=== PATIENT | female | born 1955 | race Hispanic/Latino ===

== ENCOUNTER 2021-05-24 09:35 | Emergency (ER) | payer SELFPAY ==
--- NOTE | 2021-05-24 09:47 | EDPHYS ---
Physician Documentation [facility] Name: Reno Vee Age: 65 yrs Sex: Female : 1955 Arrival Date: 05/24/2021 Time: 09:36 Bed 20 Private MD: ED Physician Christ Esquivel HPI: 05/24 09:45 This 65 yrs old Female presents to ER via Unassigned with complaints of kb Allergic Reaction, Rash. 09:45 The patient presents with itching, localized swelling, rash. Onset: The kb symptoms/episode began/occurred 3 day(s) ago. Associated signs and symptoms: Pertinent positives: rash, swelling, Pertinent negatives: shortness of breath. Possible causes: poison amy, poison oak. At home the patient or guardian has treated the symptoms with Benadryl. Severity of symptoms: At their worst the symptoms were moderate in the emergency department the symptoms are unchanged. The patient has experienced similar episodes in the past, a few times. The patient has not recently seen a physician. Pt got into poison amy or poison oak when working outside. Developed rash and swelling to face that is radiating to neck now. REports itching to bilateral upper extremities. Historical: - Allergies: 09:46 No Known Allergies; iw - Home Meds: 09:46 carvedilol oral [Active]; Metformin Oral [Active]; Glipizide Oral [Active]; Lisinopril iw Oral [Active]; amlodipine oral [Active]; - PMHx: 09:46 Hypertensive disorder; Diabetes mellitus; iw - PSHx: 09:46 None; iw - Immunization history:: Client reports receiving the 2nd dose of the Covid vaccine. - Social history:: Smoking status: Patient denies any tobacco usage or history of. ROS: 09:43 Constitutional: Negative for fever, chills, and weight loss. kb 09:43 Skin: Positive for rash, swelling, of the face and neck. 09:43 All other systems are negative. Exam: 09:43 Constitutional: This is a well developed, well nourished patient who is awake, alert, kb and in no acute distress. Head/Face: Normocephalic, atraumatic. ENT: Moist Mucous membranes Respiratory: Respirations even and unlabored. No increased work of breathing, no retractions or nasal flaring. MS/ Extremity: Pulses equal, no cyanosis. Neurovascular intact. Full, normal range of motion. Neuro: Awake and alert, GCS 15, oriented to person, place, time, and situation. Moves all extremities. Normal gait. Psych: Awake, alert, with orientation to person, place and time. Behavior, mood, and affect are within normal limits. 09:43 Skin: Appearance: normal except for affected area, swelling, noted on the face, that are mild, that are moderate, rash a mild rash is noted. Vital Signs: 09:47 BP 180 / 85; Pulse 75; Resp 18 S; Temp 98.0; Pulse Ox 98% on R/A; Weight 68.04 kg; iw MDM: 09:37 Patient medically screened. kb 09:42 Data reviewed: vital signs, nurses notes. Data interpreted: Pulse oximetry: on room air kb is 100 %. Interpretation: normal. Counseling: I had a detailed discussion with the patient and/or guardian regarding: the historical points, exam findings, and any diagnostic results supporting the discharge/admit diagnosis, the need for outpatient follow up, a family practitioner, to return to the emergency department if symptoms worsen or persist or if there are any questions or concerns that arise at home. Administered Medications: 10:03 Drug: SOLU-Medrol (methylPREDNISolone sodium succinate) 125 mg Route: IM; Site: right iw ventrogluteal; 10:03 Drug: Pepcid (famotidine) 20 mg Route: PO; iw Disposition: 05/25 05:50 Co-signature as Attending Physician, Christ Esquivel MD I agree with the assessment and susan plan of care. Disposition Summary: 05/24/21 09:47 Discharge Ordered Location: Home kb Condition: Stable kb Diagnosis - Allergic contact dermatitis due to plants, except food kb Followup: kb - With: Emergency Department - When: As needed - Reason: Worsening of condition Followup: kb - With: Private Physician - When: 2 - 3 days - Reason: Recheck today's complaints, Continuance of care, Re-evaluation by your physician Discharge Instructions: - Discharge Summary Sheet kb - Poison Amy Dermatitis, [id number] kb - Contact Dermatitis, [id number] kb Forms: - Medication Reconciliation Form kb - Thank You Letter kb - Antibiotic Education kb - Prescription Opioid Use kb Prescriptions: - Pepcid 20 mg Oral Tablet - take 1 tablet by ORAL route every 12 hours for 5 days; 10 tablet; Refills: 0, kb Product Selection Permitted - Prednisone 20 mg Oral Tablet - take 1 tablet by ORAL route once daily for 5 days; 5 tablet; Refills: 0, kb Product Selection Permitted Signatures: Vania Vargas FNP-C FNP-Christ Sims MD MD cha Williams, Irene, RN RN iw Corrections: (The following items were deleted from the chart) 05/24 09:47 09:46 Allergies: Aspirin; iw iw
--- NOTE | 2021-05-24 09:47 | ER ---
Nurse's Notes [facility] Name: Reno Vee Age: 65 yrs Sex: Female : 1955 Arrival Date: 05/24/2021 Time: 09:36 Bed 20 Private MD: Diagnosis: Allergic contact dermatitis due to plants, except food Presentation: 05/24 09:45 Chief complaint: Patient states: exposed to poison brett on Tuesday, now has swelling iw to face, is taking OTC benadryl. Initial Sepsis Screen: Does the patient meet any 2 criteria? No. Patient's initial sepsis screen is negative. Does the patient have a suspected source of infection? No. Patient's initial sepsis screen is negative. Risk Assessment: Do you want to hurt yourself or someone else? Patient reports no desire to harm self or others. 09:45 Method Of Arrival: Ambulatory iw 09:45 Acuity: TURNER 4 iw Historical: - Allergies: 09:46 No Known Allergies; iw - Home Meds: 09:46 carvedilol oral [Active]; Metformin Oral [Active]; Glipizide Oral [Active]; Lisinopril iw Oral [Active]; amlodipine oral [Active]; - PMHx: 09:46 Hypertensive disorder; Diabetes mellitus; iw - PSHx: 09:46 None; iw - Immunization history:: Client reports receiving the 2nd dose of the Covid vaccine. - Social history:: Smoking status: Patient denies any tobacco usage or history of. Vital Signs: 09:47 BP 180 / 85; Pulse 75; Resp 18 S; Temp 98.0; Pulse Ox 98% on R/A; Weight 68.04 kg; iw ED Course: 09:36 Patient arrived in ED. as 09:36 [facility]C [facility] kb 09:36 Christ Esquivel MD is Attending Physician. kb 09:45 Triage completed. iw 09:47 Arm band placed on. iw 09:56 Mattie Gibson, RN is Primary Nurse. iw Administered Medications: 10:03 Drug: SOLU-Medrol (methylPREDNISolone sodium succinate) 125 mg Route: IM; Site: right iw ventrogluteal; 10:03 Drug: Pepcid (famotidine) 20 mg Route: PO; iw Outcome: 09:47 Discharge ordered by MD. krishnan 10:09 Patient left the ED. iw Signatures: Vania Vargas, DEANDRE COSTELLO-Bren Cutler Irene RN RN iw Corrections: (The following items were deleted from the chart) :47 09:46 Allergies: Aspirin; iw iw
[2021-05-24] MEDS ORDERED: METHYLPREDNISOLONE 125 MG INJ ONE (09:57)
[2021-05-24] MEDS ORDERED: FAMOTIDINE 20 MG TAB ONE (09:57)
[2021-05-24 10:12] VITALS: BP 180/85; TEMP 98; O2SAT 98
== END 2021-05-24 10:09 | disposition home or self-care (01) ==
LOC: ER 09:35
DX: L25.5 Unspecified contact dermatitis due to plants, except food (principal); I10 Essential (primary) hypertension; E11.9 Type 2 diabetes mellitus without complications
CPT/HCPCS: 96372; 99282; J2930

== ENCOUNTER 2022-06-03 12:45 | Emergency (ER) | payer SELFPAY ==
--- OUTSIDE RECORDS SUMMARY | 2022-06-03 12:52 | XMS REPORT | Continuity of Care Document ---
:1955 Author Organization [facility] t Address [address] [place] [address] Care Team Providers Name Role Phone Pcp, Patient Does Not Have A Primary Care Physician +[id number] BABITA BROWN Attending Clinician Unavailable Provider, [facility] Temp Attending Clinician Unavailable Babita Brown CNM Attending Clinician Doctor Unassigned, [place] Attending Clinician Unavailable Payers Payer Name Policy Type Policy Number Effective Date Expiration Date S ource Problems Condition Condition Condition Status Onset Resolution Last Treating Co mments Source Name Details Category Date Date Treatment Clinician Date Post-menop Post-menop Disease Active 2021-07 U ena ausal ausal 06 ity of 00:00: [address] Primary Primary Disease Active 2021-07 Univers hypertensi hypertensi 07-16 it y of on on 00:00: [address] Diabetes Diabetes Disease Active 2021-07 Unive rs mellitus mellitus 06 ity of treated treated 00:00: [place] with oral with oral 00 Medi frank medication medication Br anch Uterine Uterine Disease Active 2021-07 Univers prolapse prolapse 06 ity of 00:00: [address] Overweight Overweight Disease Active 2021-07 U ena (BMI (BMI -06 ity of 25.0-29.9) 25.0-29.9[place] Allergies, Adverse Reactions, Alerts Allergy Allergy Status Severity Reaction(s) Onset Inactive Treating Comm ents Source Name Type Date Date Clinician Lynn - Propensi Active Intraven ty to 6-08 ous adverse 00:00: reaction 00 to drug Motrin - Propensi Active Oral ty to 3-09 adverse 00:00: reaction 00 to drug Motrin Propensi Active ty to 1-22 adverse 00:00: reaction 00 to drug NO KNOWN Drug Active [facility] ALLERGIE Class ity of [facility] Social History Social Habit Start Date Stop Date Quantity Comments Source Exposure to 2022-05-14 2022-05-24 Not sure [facility] SARS-CoV-2 00:00:00 05:18:00 [facility] (event) [place] Alcohol intake 2022-05-16 2022-05-16 Lifetime University of 00:00:00 00:00:00 non-drinker [facility] (finding) [place] Tobacco use and 2022-05-14 2022-05-14 Smokeless tobacco Un iversity of exposure 00:00:00 00:00:00 non-user [facility] Sex Ass[birth year] At [birth year] Universit y of 00:00:00 00:00:00 [facility] Smoking Status Start Date Stop Date Source Tobacco smoking consumption [facility] Never smoked tobacco [facility] Medications Ordered Filled Start Stop Current Ordering Indication Dosage Frequency Signature Comments Components Source Medication Medication Date Date Medication? Clinician (SIG) Name Name CARVEDILOL 2021-07 Yes Take by Univ ers ORAL 1-04 mouth. ity of 16:03: [address] LISINOPRIL 2021-07 Yes Take by Univ ers ORAL 1-04 mouth. ity of 16:03: [address] amlodipine 2021-07 Yes Take by Univ ers besylate 1-04 mouth. ity of (AMLODIPINE 16:03: [place] ORAL[place] [address] [place] [address] metformin 2021-07 Yes Take by Unive rs HCl 1-04 mouth. ity of (METFORMIN 16:03: [place] ORAL) [address] [place] [address] Branch GLIPIZIDE 2021-07 Yes Take by Unive rs ORAL 1-04 mouth. ity of 16:03: [address] LOVASTATIN 2021-07 Yes Take by Univ ers ORAL 1-04 mouth. ity of 16:03: [address] trazodone 2021-07 Yes Take by Unive rs HCl 1-04 mouth. ity of (TRAZODONE 16:03: [place] ORAL) [address] [place] [address] CARVEDILOL 2021-07 Yes Take by Univ ers ORAL 1-04 mouth. ity of 16:03: [address] LISINOPRIL 2021-07 Yes Take by Univ ers ORAL 1-04 mouth. ity of 16:03: [address] amlodipine 2021-07 Yes Take by Univ ers besylate 1-04 mouth. ity of (AMLODIPINE 16:03: [place] ORAL) [address] [place] [address] metformin 2021-07 Yes Take by Unive rs HCl 1-04 mouth. ity of (METFORMIN 16:03: [place] ORAL) [address] [place] [address] GLIPIZIDE 2021-07 Yes Take by Unive rs ORAL 1-04 mouth. ity of 16:03: [address] LOVASTATIN 2021-07 Yes Take by Univ ers ORAL 1-04 mouth. ity of 16:03: [address] trazodone 2021-07 Yes Take by Unive rs HCl 1-04 mouth. ity of (TRAZODONE 16:03: [place] ORAL) [address] [place] [address] CARVEDILOL 2021-07 Yes Take by Univ ers ORAL 1-04 mouth. ity of 16:03: [address] LISINOPRIL 2021-07 Yes Take by Univ ers ORAL 1-04 mouth. ity of 16:03: [address] amlodipine 2021-07 Yes Take by Univ ers besylate 1-04 mouth. ity of (AMLODIPINE 16:03: [place] ORAL) [address] [place] [address] metformin 2021-07 Yes Take by Unive rs HCl 1-04 mouth. ity of (METFORMIN 16:03: [place] ORAL) [address] [place] [address] Branch GLIPIZIDE 2021-07 Yes Take by Unive rs ORAL 1-04 mouth. ity of 16:03: [address] LOVASTATIN 2021-07 Yes Take by Univ ers ORAL 1-04 mouth. ity of 16:03: [address] trazodone 2021-07 Yes Take by Unive rs HCl 1-04 mouth. ity of (TRAZODONE 16:03: [place] ORAL) [address] [facility] nystatin 2022-0 No 1unit/g 100,000 6-08 roberta unit/gram 00:00: topical 00 cream Dose 2022-0 No Unknown 6-08 00:00: 00 Dose 2022-0 No Unknown 6-08 00:00: 00 Protonix 40 2022-0 No 1mg mg 6-08 tablet,benji 00:00: yed release 00 carvedilol 2022-0 No 1mg 12.5 mg 6-08 tablet 00:00: 00 glipizide 2022-0 No 1mg 10 mg 6-08 tablet 00:00: 00 metformin 2022-0 No 1mg 1,000 mg 6-08 tablet 00:00: 00 lovastatin 2022-0 No 1mg 20 mg 6-08 tablet 00:00: 00 nystatin 2022-0 No 1unit/g 100,000 6-08 roberta unit/gram 00:00: topical 00 cream Dose 2022-0 No Unknown 6-08 00:00: 00 Dose 2022-0 No Unknown 6-08 00:00: 00 Protonix 40 2022-0 No 1mg mg 6-08 tablet,benji 00:00: yed release 00 carvedilol 2022-0 No 1mg 12.5 mg 6-08 tablet 00:00: 00 glipizide 2022-0 No 1mg 10 mg 6-08 tablet 00:00: 00 metformin 2022-0 No 1mg 1,000 mg 6-08 tablet 00:00: 00 lovastatin 2022-0 No 1mg 20 mg 6-08 tablet 00:00: 00 amlodipine 2022-0 No 1mg 10 mg 3-10 tablet 00:00: 00 lisinopril 2022-0 No 1mg 40 mg 3-10 tablet 00:00: 00 Protonix 40 2022-0 No 1mg mg 3-10 tablet,benji 00:00: yed release 00 metformin 2022-0 No 1mg 1,000 mg 3-10 tablet 00:00: 00 glipizide 2022-0 No 1mg 10 mg 3-10 tablet 00:00: 00 carvedilol 2022-0 No 1mg 12.5 mg 3-10 tablet 00:00: 00 lovastatin 2022-0 No 1mg 20 mg 3-10 tablet 00:00: 00 amlodipine 2022-0 No 1mg 10 mg 3-10 tablet 00:00: 00 lisinopril 2022-0 No 1mg 40 mg 3-10 tablet 00:00: 00 Protonix 40 2022-0 No 1mg mg 3-10 tablet,benji 00:00: yed release 00 metformin 2022-0 No 1mg 1,000 mg 3-10 tablet 00:00: 00 glipizide 2022-0 No 1mg 10 mg 3-10 tablet 00:00: 00 carvedilol 2022-0 No 1mg 12.5 mg 3-10 tablet 00:00: 00 lovastatin 2022-0 No 1mg 20 mg 3-10 tablet 00:00: 00 Dose 2021-1 No Unknown 2-01 00:00: 00 Dose 2021-1 No Unknown 2-01 00:00: 00 Dose 2021-1 No Unknown 2-01 00:00: 00 Dose 2021-1 No Unknown 2-01 00:00: 00 Dose 2021-1 No Unknown 2-01 00:00: 00 Dose 2021-1 No Unknown 2-01 00:00: 00 Dose 2021-1 No Unknown 2-01 00:00: 00 Dose 2021-1 No Unknown 2-01 00:00: 00 Dose 2021-1 No Unknown 2-01 00:00: 00 Dose 2021-1 No Unknown 2-01 00:00: 00 Dose 2021-1 No Unknown 2-01 00:00: 00 Dose 2021-1 No Unknown 2-01 00:00: 00 Dose 2021-1 No Unknown 2-01 00:00: 00 Dose 2021-1 No Unknown 2-01 00:00: 00 Protonix 40 2021-0 No 1mg mg 8-25 tablet,benji 00:00: yed release 00 amlodipine 2021-0 No 1mg 10 mg 8-25 tablet 00:00: 00 lisinopril 2021-0 No 1mg 40 mg 8-25 tablet 00:00: 00 lisinopril 2021-0 No 1mg 40 mg 8-25 tablet 00:00: 00 amlodipine 2021-0 No 1mg 10 mg 8-25 tablet 00:00: 00 Protonix 40 2021-0 No 1mg mg 8-25 tablet,benji 00:00: yed release 00 carvedilol 2021-0 No 1mg 12.5 mg 8-25 tablet 00:00: 00 metformin 2021-0 No 1mg 1,000 mg 8-25 tablet 00:00: 00 glipizide 2021-0 No 1mg 10 mg 8-25 tablet 00:00: 00 glipizide 2021-0 No 1mg 10 mg 8-25 tablet 00:00: 00 metformin 2021-0 No 1mg 1,000 mg 8-25 tablet 00:00: 00 carvedilol 2021-0 No 1mg 12.5 mg 8-25 tablet 00:00: 00 lovastatin 2021-0 No 1mg 20 mg 8-25 tablet 00:00: 00 lovastatin 2021-0 No 1mg 20 mg 8-25 tablet 00:00: 00 Protonix 40 2021-0 No 1mg mg 8-25 tablet,benji 00:00: yed release 00 amlodipine 2021-0 No 1mg 10 mg 8-25 tablet 00:00: 00 lisinopril 2021-0 No 1mg 40 mg 8-25 tablet 00:00: 00 lisinopril 2021-0 No 1mg 40 mg 8-25 tablet 00:00: 00 amlodipine 2021-0 No 1mg 10 mg 8-25 tablet 00:00: 00 Protonix 40 2021-0 No 1mg mg 8-25 tablet,benji 00:00: yed release 00 carvedilol 2021-0 No 1mg 12.5 mg 8-25 tablet 00:00: 00 metformin 2021-0 No 1mg 1,000 mg 8-25 tablet 00:00: 00 glipizide 2021-0 No 1mg 10 mg 8-25 tablet 00:00: 00 glipizide 2021-0 No 1mg 10 mg 8-25 tablet 00:00: 00 metformin 2021-0 No 1mg 1,000 mg 8-25 tablet 00:00: 00 carvedilol 2021-0 No 1mg 12.5 mg 8-25 tablet 00:00: 00 lovastatin 2021-0 No 1mg 20 mg 8-25 tablet 00:00: 00 lovastatin 2021-0 No 1mg 20 mg 8-25 tablet 00:00: 00 lisinopril 2021-0 No 1mg 40 mg 5-18 tablet 00:00: 00 amlodipine 2021-0 No 1mg 10 mg 5-18 tablet 00:00: 00 Protonix 40 2021-0 No 1mg mg 5-18 tablet,benji 00:00: yed release 00 glipizide 2021-0 No 1mg 10 mg 5-18 tablet 00:00: 00 metformin 2021-0 No 1mg 1,000 mg 5-18 tablet 00:00: 00 carvedilol 2021-0 No 1mg 12.5 mg 5-18 tablet 00:00: 00 lisinopril 2021-0 No 1mg 40 mg 5-18 tablet 00:00: 00 amlodipine 2021-0 No 1mg 10 mg 5-18 tablet 00:00: 00 Protonix 40 2021-0 No 1mg mg 5-18 tablet,benji 00:00: yed release 00 glipizide 2021-0 No 1mg 10 mg 5-18 tablet 00:00: 00 metformin 2021-0 No 1mg 1,000 mg 5-18 tablet 00:00: 00 carvedilol 2021-0 No 1mg 12.5 mg 5-18 tablet 00:00: 00 lisinopril 2021-0 No 1mg 40 mg 2-08 tablet 00:00: 00 amlodipine 2021-0 No 1mg 10 mg 2-08 tablet 00:00: 00 Protonix 40 2021-0 No 1mg mg 2-08 tablet,benji 00:00: yed release 00 glipizide 2021-0 No 1mg 10 mg 2-08 tablet 00:00: 00 metformin 2021-0 No 1mg 1,000 mg 2-08 tablet 00:00: 00 carvedilol 2021-0 No 1mg 12.5 mg 2-08 tablet 00:00: 00 lisinopril 2021-0 No 1mg 40 mg 2-08 tablet 00:00: 00 amlodipine 2021-0 No 1mg 10 mg 2-08 tablet 00:00: 00 Protonix 40 2021-0 No 1mg mg 2-08 tablet,benji 00:00: yed release 00 glipizide 2021-0 No 1mg 10 mg 2-08 tablet 00:00: 00 metformin 2021-0 No 1mg 1,000 mg 2-08 tablet 00:00: 00 carvedilol 1-0 No 1mg 12.5 mg 2-08 tablet 00:00: 00 prednisone 1-0 No 2mg 20 mg 1-27 tablet 00:00: 00 prednisone 2021-0 No 2mg 20 mg 1-27 tablet 00:00: 00 lisinopril 2020-1 No 1mg 40 mg 1-11 tablet 00:00: 00 amlodipine 2020-1 No 1mg 10 mg 1-11 tablet 00:00: 00 prednisone 2019-1 No 1mg 5 mg tablet 1-11 00:00: 00 amlodipine 2020-1 No 1mg 10 mg 1-11 tablet 00:00: 00 carvedilol 2019-1 No 1mg 12.5 mg 1-11 tablet 00:00: 00 metformin 2019-1 No 1mg 1,000 mg 1-11 tablet 00:00: 00 glipizide 2020-1 No 1mg 10 mg 1-11 tablet 00:00: 00 lovastatin 2019-1 No 1mg 20 mg 1-11 tablet 00:00: 00 lisinopril 2019-1 No 1mg 40 mg 1-11 tablet 00:00: 00 amlodipine 2019-1 No 1mg 10 mg 1-11 tablet 00:00: 00 prednisone 2019-1 No 1mg 5 mg tablet 1-11 00:00: 00 amlodipine 2019-1 No 1mg 10 mg 1-11 tablet 00:00: 00 carvedilol 2019-1 No 1mg 12.5 mg 1-11 tablet 00:00: 00 metformin 2019-1 No 1mg 1,000 mg 1-11 tablet 00:00: 00 glipizide 2019-1 No 1mg 10 mg 1-11 tablet 00:00: 00 lovastatin 2020-1 No 1mg 20 mg 1-11 tablet 00:00: 00 lisinopril 2020-0 No 1mg 40 mg 8-05 tablet 00:00: 00 carvedilol 2020-0 No 1mg 12.5 mg 8-05 tablet 00:00: 00 metformin 2020-0 No 1mg 1,000 mg 8-05 tablet 00:00: 00 glipizide 2020-0 No 1mg 10 mg 8-05 tablet 00:00: 00 sulfamethox 2020-0 No 1mg azole 800 8-05 mg-trimetho 00:00: prim 160 mg 00 tablet lovastatin 2020-0 No 1mg 20 mg 8-05 tablet 00:00: 00 lisinopril 2020-0 No 1mg 40 mg 8-05 tablet 00:00: 00 carvedilol 2020-0 No 1mg 12.5 mg 8-05 tablet 00:00: 00 metformin 2020-0 No 1mg 1,000 mg 8-05 tablet 00:00: 00 glipizide 2020-0 No 1mg 10 mg 8-05 tablet 00:00: 00 sulfamethox 2020-0 No 1mg azole 800 8-05 mg-trimetho 00:00: prim 160 mg 00 tablet lovastatin 2020-0 No 1mg 20 mg 8-05 tablet 00:00: 00 terbinafine 2020-0 No 1mg HCl 250 mg 5-07 tablet 00:00: 00 terbinafine 2020-0 No 1mg HCl 250 mg 5-07 tablet 00:00: 00 lovastatin 2020-0 No 1mg 20 mg 4-30 tablet 00:00: 00 lovastatin 2020-0 No 1mg 20 mg 4-30 tablet 00:00: 00 lisinopril 2020-0 No 1mg 30 mg 4-29 tablet 00:00: 00 carvedilol 2020-0 No 1mg 12.5 mg 4-29 tablet 00:00: 00 glipizide 2020-0 No 1mg 10 mg 4-29 tablet 00:00: 00 metformin 2020-0 No 1mg 1,000 mg 4-29 tablet 00:00: 00 lisinopril 2020-0 No 1mg 30 mg 4-29 tablet 00:00: 00 carvedilol 2020-0 No 1mg 12.5 mg 4-29 tablet 00:00: 00 glipizide 2020-0 No 1mg 10 mg 4-29 tablet 00:00: 00 metformin 2020-0 No 1mg 1,000 mg 4-29 tablet 00:00: 00 prednisone 2020-0 No 1mg 5 mg tablet 2-12 00:00: 00 lisinopril 2020-0 No 1mg 20 mg 2-12 tablet 00:00: 00 glipizide 2020-0 No 1mg 10 mg 2-12 tablet 00:00: 00 metformin 2020-0 No 1mg 1,000 mg 2-12 tablet 00:00: 00 carvedilol 2020-0 No 1mg 12.5 mg 2-12 tablet 00:00: 00 prednisone 2020-0 No 1mg 5 mg tablet 2-12 00:00: 00 lisinopril 2020-0 No 1mg 20 mg 2-12 tablet 00:00: 00 glipizide 2020-0 No 1mg 10 mg 2-12 tablet 00:00: 00 metformin 2020-0 No 1mg 1,000 mg 2-12 tablet 00:00: 00 carvedilol 2020-0 No 1mg 12.5 mg 2-12 tablet 00:00: 00 prednisone 2019-1 No 1mg 5 mg tablet 1-01 00:00: 00 lisinopril 2019-1 No 1mg 20 mg 1-01 tablet 00:00: 00 carvedilol 2019-1 No 1mg 12.5 mg 1-01 tablet 00:00: 00 prednisone 2019-1 No 1mg 5 mg tablet 1-01 00:00: 00 lisinopril 2019-1 No 1mg 20 mg 1-01 tablet 00:00: 00 carvedilol 2018-1 No 1mg 12.5 mg 1-01 tablet 00:00: 00 metformin 2019-1 No 1mg 1,000 mg 1-01 tablet 00:00: 00 metformin 2019-1 No 1mg 1,000 mg 1-01 tablet 00:00: 00 glipizide 2019-1 No 1mg 10 mg 1-01 tablet 00:00: 00 mirtazapine 2019-1 No 1mg 45 mg 1-01 tablet 00:00: 00 glipizide 2019-1 No 1mg 10 mg 1-01 tablet 00:00: 00 mirtazapine 2019-1 No 1mg 45 mg 1-01 tablet 00:00: 00 diclofenac 2019-0 No 1% 1 % topical 8-07 gel 00:00: 00 lisinopril 2019-0 No 1mg 20 mg 8-07 tablet 00:00: 00 glipizide 2019-0 No 1mg 10 mg 8-07 tablet 00:00: 00 carvedilol 2019-0 No 1mg 12.5 mg 8-07 tablet 00:00: 00 metformin 2019-0 No 1mg 1,000 mg 8-07 tablet 00:00: 00 trazodone 2019-0 No 1mg 100 mg 8-07 tablet 00:00: 00 diclofenac 2019-0 No 1% 1 % topical 8-07 gel 00:00: 00 lisinopril 2019-0 No 1mg 20 mg 8-07 tablet 00:00: 00 glipizide 2019-0 No 1mg 10 mg 8-07 tablet 00:00: 00 carvedilol 2019-0 No 1mg 12.5 mg 8-07 tablet 00:00: 00 metformin 2019-0 No 1mg 1,000 mg 8-07 tablet 00:00: 00 trazodone 2019-0 No 1mg 100 mg 8-07 tablet 00:00: 00 glipizide 2019-0 No 1mg 10 mg 5-02 tablet 00:00: 00 glipizide 2019-0 No 1mg 10 mg 5-02 tablet 00:00: 00 lisinopril 2019-0 No 1mg 20 mg 4-24 tablet 00:00: 00 carvedilol 2019-0 No 1mg 12.5 mg 4-24 tablet 00:00: 00 metformin 2019-0 No 1mg 1,000 mg 4-24 tablet 00:00: 00 mirtazapine 2019-0 No 1mg 15 mg 4-24 tablet 00:00: 00 lisinopril 2019-0 No 1mg 20 mg 4-24 tablet 00:00: 00 carvedilol 2019-0 No 1mg 12.5 mg 4-24 tablet 00:00: 00 metformin 2019-0 No 1mg 1,000 mg 4-24 tablet 00:00: 00 mirtazapine 2019-0 No 1mg 15 mg 4-24 tablet 00:00: 00 prednisone 2019-0 No 1mg 5 mg tablet 1-22 00:00: 00 prednisone 2019-0 No 1mg 5 mg tablet 1-22 00:00: 00 glipizide 2019-0 No 1mg 10 mg 1-22 tablet 00:00: 00 metformin 2019-0 No 1mg 1,000 mg 1-22 tablet 00:00: 00 metformin 2019-0 No 1mg 1,000 mg 1-22 tablet 00:00: 00 carvedilol 2019-0 No 1mg 12.5 mg 1-22 tablet 00:00: 00 glipizide 2019-0 No 1mg 10 mg 1-22 tablet 00:00: 00 lisinopril 2019-0 No 1mg 20 mg 1-22 tablet 00:00: 00 carvedilol 2019-0 No 1mg 12.5 mg 1-22 tablet 00:00: 00 lisinopril 2019-0 No 1mg 20 mg 1-22 tablet 00:00: 00 Diflucan 2019-0 No 1mg 150 mg 1-22 tablet 00:00: 00 prednisone 2019-0 No 1mg 5 mg tablet 1-22 00:00: 00 prednisone 2019-0 No 1mg 5 mg tablet 1-22 00:00: 00 glipizide 2019-0 No 1mg 10 mg 1-22 tablet 00:00: 00 metformin 2019-0 No 1mg 1,000 mg 1-22 tablet 00:00: 00 metformin 2019-0 No 1mg 1,000 mg 1-22 tablet 00:00: 00 carvedilol 2019-0 No 1mg 12.5 mg 1-22 tablet 00:00: 00 glipizide 2019-0 No 1mg 10 mg 1-22 tablet 00:00: 00 lisinopril 2019-0 No 1mg 20 mg 1-22 tablet 00:00: 00 carvedilol 2019-0 No 1mg 12.5 mg 1-22 tablet 00:00: 00 lisinopril 2019-0 No 1mg 20 mg 1-22 tablet 00:00: 00 Diflucan 2019-0 No 1mg 150 mg 1-22 tablet 00:00: 00 Immunizations Ordered Filled Immunization Date Status Comments [facility] e Immunization Name Name SARS-COV-2 COVID-19 2021-06-28 Completed Unive rsity of PFIZER VACCINE 00:00:00 [facility] SARS-COV-2 COVID-19 2021-06-28 Completed Unive rsity of PFIZER VACCINE 00:00:00 [facility] SARS-COV-2 COVID-19 2021-06-28 Completed Unive rsity of PFIZER VACCINE 00:00:00 [facility] SARS-COV-2 COVID-19 2021-06-28 Completed Unive rsity of PFIZER VACCINE 00:00:00 [facility] SARS-COV-2 COVID-19 2020-09-22 Completed Unive rsity of PFIZER VACCINE 00:00:00 [facility] SARS-COV-2 COVID-19 2020-09-22 Completed Unive rsity of PFIZER VACCINE 00:00:00 [facility] SARS-COV-2 COVID-19 2020-09-22 Completed Unive rsity of PFIZER VACCINE 00:00:00 [facility] SARS-COV-2 COVID-19 2020-09-22 Completed Unive rsity of PFIZER VACCINE 00:00:00 [facility] SARS-COV-2 COVID-19 2020-09-01 Completed Unive rsity of PFIZER VACCINE 00:00:00 [facility] SARS-COV-2 COVID-19 2020-09-01 Completed Unive rsity of PFIZER VACCINE 00:00:00 [facility] SARS-COV-2 COVID-19 2020-09-01 Completed Unive rsity of PFIZER VACCINE 00:00:00 [facility] SARS-COV-2 COVID-19 2020-09-01 Completed Unive rsity of PFIZER VACCINE 00:00:00 [facility] Vital Signs Vital Name Observation Time Observation Value Comments Source Systolic blood 2022-05-14 20:49:00 166 mm[Hg] Univer sity of pressure [facility] Diastolic blood 2022-05-14 20:49:00 76 mm[Hg] Unive rsity of pressure [facility] Heart rate 2022-05-14 20:49:00 65 /min [facility] Body temperature 2022-05-14 20:48:00 35.94 [facility] 2022-05-14 20:48:00 16 /[facility] Body height 2022-05-14 20:48:00 155 cm [facility] Body weight 2022-05-14 20:48:00 66.815 kg [facility] BMI 2022-05-14 20:48:00 27.81 kg/m2 [facility] BP Systolic 2022-04-19 08:22:00 174 mm[Hg] BP Diastolic 2022-04-19 08:22:00 82 mm[Hg] Weight Measured 2022-04-19 08:22:00 147.40 pounds Height Measured 2022-04-19 08:22:00 64.65 inches Body Temperature 2022-04-19 08:22:00 97.10 degrees Heart Rate 2022-04-19 08:22:00 78.00 /min Respiratory Rate 2022-04-19 08:22:00 BP Systolic 2022-03-24 08:38:00 168 mm[Hg] BP Diastolic 2022-03-24 08:38:00 76 mm[Hg] Weight Measured 2022-03-24 08:38:00 151.20 pounds Height Measured 2022-03-24 08:38:00 64.65 inches Body Temperature 2022-03-24 08:38:00 97.90 degrees Heart Rate 2022-03-24 08:38:00 70.00 /min Respiratory Rate 2022-03-24 08:38:00 16.00 /min BP Systolic 2021-12-16 08:13:00 151 mm[Hg] BP Diastolic 2021-12-16 08:13:00 77 mm[Hg] Weight Measured 2021-12-16 08:13:00 152.60 pounds Height Measured 2021-12-16 08:13:00 64.65 inches Body Temperature 2021-12-16 08:13:00 98.40 degrees Heart Rate 2021-12-16 08:13:00 86.00 /min Respiratory Rate 2021-12-16 08:13:00 17.00 /min BP Systolic 2021-09-16 17:44:00 137 mm[Hg] BP Diastolic 2021-09-16 17:44:00 76 mm[Hg] Weight Measured 2021-09-16 17:44:00 152.00 pounds Height Measured 2021-09-16 17:44:00 64.65 inches Body Temperature 2021-09-16 17:44:00 98.30 degrees Heart Rate 2021-09-16 17:44:00 89.00 /min Respiratory Rate 2021-09-16 17:44:00 17.00 /min BP Systolic 2021-06-10 11:21:00 118 mm[Hg] BP Diastolic 2021-06-10 11:21:00 70 mm[Hg] Weight Measured 2021-06-10 11:21:00 151.00 pounds Height Measured 2021-06-10 11:21:00 64.65 inches Body Temperature 2021-06-10 11:21:00 98.00 degrees Heart Rate 2021-06-10 11:21:00 79.00 /min Respiratory Rate 2021-06-10 11:21:00 16.00 /min BP Systolic 2021-03-04 08:35:00 150 mm[Hg] BP Diastolic 2021-03-04 08:35:00 78 mm[Hg] Weight Measured 2021-03-04 08:35:00 152.20 pounds Height Measured 2021-03-04 08:35:00 64.65 inches Body Temperature 2021-03-04 08:35:00 98.30 degrees Heart Rate 2021-03-04 08:35:00 84.00 /min Respiratory Rate 2021-03-04 08:35:00 16.00 /min BP Systolic 2020-11-25 11:06:00 146 mm[Hg] BP Diastolic 2020-11-25 11:06:00 97 mm[Hg] Weight Measured 2020-11-25 11:06:00 151.00 pounds Height Measured 2020-11-25 11:06:00 64.65 inches Body Temperature 2020-11-25 11:06:00 98.00 degrees Heart Rate 2020-11-25 11:06:00 75.00 /min Respiratory Rate 2020-11-25 11:06:00 16.00 /min BP Systolic 2020-08-06 08:13:00 173 mm[Hg] BP Diastolic 2020-08-06 08:13:00 83 mm[Hg] Weight Measured 2020-08-06 08:13:00 155.80 pounds Height Measured 2020-08-06 08:13:00 64.65 inches Body Temperature 2020-08-06 08:13:00 98.50 degrees Heart Rate 2020-08-06 08:13:00 76.00 /min Respiratory Rate 2020-08-06 08:13:00 16.00 /min BP Systolic 2020-05-21 08:14:00 192 mm[Hg] BP Diastolic 2020-05-21 08:14:00 77 mm[Hg] Weight Measured 2020-05-21 08:14:00 153.40 pounds Height Measured 2020-05-21 08:14:00 64.65 inches Body Temperature 2020-05-21 08:14:00 98.90 degrees Heart Rate 2020-05-21 08:14:00 77.00 /min Respiratory Rate 2020-05-21 08:14:00 18.00 /min BP Systolic 2020-02-13 08:43:00 177 mm[Hg] BP Diastolic 2020-02-13 08:43:00 82 mm[Hg] Weight Measured 2020-02-13 08:43:00 153.80 pounds Height Measured 2020-02-13 08:43:00 64.65 inches Body Temperature 2020-02-13 08:43:00 97.80 degrees Heart Rate 2020-02-13 08:43:00 70.00 /min Respiratory Rate 2020-02-13 08:43:00 18.00 /min BP Systolic 2019-11-07 08:11:00 185 mm[Hg] BP Diastolic 2019-11-07 08:11:00 81 mm[Hg] Weight Measured 2019-11-07 08:11:00 155.40 pounds Height Measured 2019-11-07 08:11:00 64.50 inches Body Temperature 2019-11-07 08:11:00 97.90 degrees Heart Rate 2019-11-07 08:11:00 74.00 /min Respiratory Rate 2019-11-07 08:11:00 16.00 /min Procedures Procedure Date / Time Performed Performing Clinician [facility] e ASSIGNMENT OF BENEFITS 2022-05-14 20:11:33 Doctor Unassigned, No [facility] Plan of Care Planned Activity Planned Date Details Comments Source Goal Plan of Care Note [code = 67191-0] Goal Plan of Care Note [code = 04061-1] Goal Plan of Care Note [code = 01074-0] Goal Plan of Care Note [code = 44777-4] Goal Plan of Care Note [code = 70464-7] Goal Plan of Care Note [code = 11967-6] Goal Plan of Care Note [code = 50765-2] Goal Plan of Care Note [code = 94048-5] Goal Plan of Care Note [code = 09353-0] Goal Plan of Care Note [code = 12147-7] Goal Plan of Care Note [code = 49204-5] Goal Plan of Care Note [code = 59592-2] Goal Plan of Care Note [code = 77895-0] Goal Plan of Care Note [code = 43056-1] Goal Plan of Care Note [code = 65878-4] Goal Plan of Care Note [code = 74054-9] Goal Plan of Care Note [code = 35745-5] Goal Plan of Care Note [code = 01590-9] Goal Plan of Care Note [code = 04560-8] Goal Plan of Care Note [code = 95922-1] Goal Plan of Care Note [code = 91475-9] Goal Plan of Care Note [code = 13272-8] Goal Plan of Care Note [code = 62628-3] Goal Plan of Care Note [code = 92768-4] Goal Plan of Care Note [code = 87354-7] Goal Plan of Care Note [code = 75408-0] Goal Plan of Care Note [code = 13100-2] Goal Plan of Care Note [code = 15741-2] Goal Plan of Care Note [code = 44205-1] Goal Plan of Care Note [code = 19939-1] Goal Plan of Care Note [code = 30553-2] Goal Plan of Care Note [code = 91561-9] Goal Plan of Care Note [code = 51384-1] Goal Plan of Care Note [code = 19628-5] Goal Plan of Care Note [code = 03956-9] Goal Plan of Care Note [code = 25999-4] Goal Plan of Care Note [code = 36260-6] Goal Plan of Care Note [code = 70135-8] Goal Plan of Care Note [code = 22007-7] Goal Plan of Care Note [code = 44164-0] Goal Plan of Care Note [code = 11005-0] Goal Plan of Care Note [code = 62943-9] Goal Plan of Care Note [code = 59436-0] Encounters Start End Encounter Admission Attending Care Care Encounter Source Date/Time Date/Time Type Type Clinicians Facility Department ID 2022-07-19 2022-07-19 Outpatient R NARGIS, [facility] [id number] [facility] 00:00:00 00:00:00 BABITA redding [facility] 2022-05-26 2022-05-26 Telephone Provider, [facility] [id number] Univers 00:00:00 00:00:00 Ang-Rmchp [employer] 350.1.13.10 ity [facility] 4.2.7.2.686 Gil as MATERNAL [id number] Med ical & CHILD [address] [place] [address] 2022-05-14 2022-05-14 Outpatient R NARGIS [facility] [id number] [facility] 15:15:00 16:33:53 BABITA ityadira [facility] 2022-05-14 2022-05-14 Office Provider, Chet Sanchez [facility] 1 .[id number] [id number] [facility] 15:15:00 16:33:53 Visit Babita Brown [employer] 350.1.13.1 0 ity of [facility] 4.2.7.2.686 Gil as MATERNAL [id number] [facility] & CHILD [address] [place] [address] 2022-05-14 2022-05-14 Orders Doctor MICHAEL [id number] 00:00:00 00:00:00 Only Unassigned, RASHEED 350.1.13.10 ity of [place] [facility] 4.2.7.2.686 Gil as [phone] [address] 2022-04-19 2022-04-19 Outpatient [facility] [id number] [place] 08:15:04 08:15:04 1010 F Omar 2022-04-19 2022-04-19 Outpatient [id number] 00:00:00 00:00:00 Visit [id number] [id number] 2022-03-24 2022-03-24 Outpatient [id number] [id number] 00:00:00 00:00:00 Visit e00h-[id number] [id number] Results Test Description Test Time Test Comments Results Result Comments Source HEMOGLOBIN A1c 2022-03-25 09:46:46 Test Item Value Reference Range Interpretation Comme nts HEMOGLOBIN A1c (test code = 8.7 % 4.2-5.6 H [employer] 73484) GUIDELINES FOR HGB A1C: PREDIABETES/INC REASED RISK . . . . . . . 5.7-6.4% DIAGNO SIS OF DIABETES . . . . . . . . . >=6.5% WITH CONFIRMATION OR APPROPRIATE SYM PTOMS NOTE: ASSAY MAY BE AFFECTED BY HEM OGLOBINOPATHIES (SICKLE CELL ANEMIA, S- C DISEASE, OTHERS) OR ARTIFICIALLY LO WERED BY DECREASED RED CELL SURVIVAL ( HEMOLYTIC ANEMIAS, BLOOD LOSS, ETC.). CO NSIDER ALTERNATE TESTING OR LABORATORY C ONSULTATION. COMPREHENSIVE METABOLIC [id number] 05:59:39 Test Item Value Reference Range Interpretation Comments GLUCOSE (test code = 231 MG/DL 70-99 H 2216) BUN (test code = 15 MG/DL 8-23 2207) CREATININE (test 0.48 MG/DL 0.60-1.30 L code = 221) eGFR (2020 CKD-EPI) 104 >60 (test code = 97765) ML/MIN/1.73 CALC BUN/CREAT (test 31 RATIO 6-28 H code = 2235) SODIUM (test code = 140 MEQ/L 989-922 5065) POTASSIUM (test code 4.7 MEQ/L 3.5-5.4 = 2227) CHLORIDE (test code 105 MEQ/L 95-107 = 2215) CARBON DIOXIDE (test 22 MEQ/L 19-31 code = 2206) CALCIUM (test code = 10.0 MG/DL 8.5-10.5 2208) PROTEIN, TOTAL (test 8.1 G/DL 6.1-8.3 code = 2229) ALBUMIN (test code = 4.9 G/DL 3.5-5.2 2200) CALC GLOBULIN (test 3.2 G/DL 1.9-3.7 code = 2240) CALC A/G RATIO (test 1.5 RATIO 1.0-2.6 code = 2234) BILIRUBIN, TOTAL 0.4 MG/DL See_Comment [Automated message] (test code = 2207) The syste m which generated this result transmit lorna reference range : <=1.2. The refe rence range was not u sed to interpret th is result as normal/abnormal . ALKALINE PHOSPHATASE 73 U/L 40-142 (test code = 2204) AST (test code = 13 U/L 9-40 2217) ALT (test code = 14 U/L 5-40 2218) LIPID [id number] 05:59:39 Test Item Value Reference Range Interpretation Comments CHOLESTEROL (test 183 MG/DL <200 code = 2210) TRIGLYCERIDES (test 85 MG/DL <150 code = 2232) HDL CHOLESTEROL (test 72 MG/DL >39 code = 2220) CALC LDL CHOL (test 93 MG/DL <100 NOTE: C ALCULATED LDL code = 2237) IS BASED ON NANCY-CRAWFORD METHOD WHICHINCLUDES ADJUSTABLE TRIGLYCERIDE:VL DL CHOLESTEROL RAT IO.THIS FACTOR VARIES B Y MEASURED TRIGLY CERIDE AND NON-HDLCHOL ESTEROL CONCENTRATIONS WITH INCREASED CALCU LATED LDL SEENIN HIGH ER TRIGLYCERIDE OR LOWER NON-HDL SPECIME NS. FOR MOREINFORMATION , SEE CLIENT ANNOUNCE MENT AT [email or web address] RISK RATIO LDL/HDL 1.29 RATIO <3.22 UNLESS O THERWISE (test code = 2238) INDICATED , ALL TESTING PERFORMED [facility], [facility]. [address] [place] [id number] [place] [address] DIRECTOR: ESTER TARIQ M.D. [place] NUMBER [id number] CAP ACCREDITATION N O. [id number] HEMOGLOBIN [id number] 00:00:00 Test Item Value Reference Range Interpretation Comments HEMOGLOBIN A1c (test code = 59864) 8.7 % HEMOGLOBIN [id number] 00:00:00 Test Item Value Reference Range Interpretation Comments HEMOGLOBIN A1c (test code = 41572) 8.7 % HEMOGLOBIN [id number] 00:00:00 Test Item Value Reference Range Interpretation Comments HEMOGLOBIN A1c (test code = 67159) 8.7 % COMPREHENSIVE METABOLIC [id number] 00:00:00 Test Item Value Reference Range Interpretation Comments GLUCOSE (test code = 2217) 231 MG/DL BUN (test code = 2208) 15 MG/DL CREATININE (test code = 2214) 0.48 MG/DL eGFR (2020 CKD-EPI) (test 104 ML/MIN/1.73 code = 72388) CALC BUN/CREAT (test code = 31 RATIO 2235) SODIUM (test code = 2231) 140 MEQ/L POTASSIUM (test code = 2228) 4.7 MEQ/L CHLORIDE (test code = 2215) 105 MEQ/L CARBON DIOXIDE (test code = 22 MEQ/L 2205) CALCIUM (test code = 2209) 10.0 MG/DL PROTEIN, TOTAL (test code = 8.1 G/DL 222) ALBUMIN (test code = 2201) 4.9 G/DL CALC GLOBULIN (test code = 3.2 G/DL 2240) CALC A/G RATIO (test code = 1.5 RATIO 2234) BILIRUBIN, TOTAL (test code = 0.4 MG/DL 2206) ALKALINE PHOSPHATASE (test 73 U/L code = 2204) AST (test code = 2218) 13 U/L ALT (test code = 2219) 14 U/L COMPREHENSIVE METABOLIC [id number] 00:00:00 Test Item Value Reference Range Interpretation Comments GLUCOSE (test code = 2217) 231 MG/DL BUN (test code = 2208) 15 MG/DL CREATININE (test code = 2214) 0.48 MG/DL eGFR (2020 CKD-EPI) (test 104 ML/MIN/1.73 code = 71085) CALC BUN/CREAT (test code = 31 RATIO 2235) SODIUM (test code = 2231) 140 MEQ/L POTASSIUM (test code = 2228) 4.7 MEQ/L CHLORIDE (test code = 2215) 105 MEQ/L CARBON DIOXIDE (test code = 22 MEQ/L 2205) CALCIUM (test code = 2209) 10.0 MG/DL PROTEIN, TOTAL (test code = 8.1 G/DL 2228) ALBUMIN (test code = 2201) 4.9 G/DL CALC GLOBULIN (test code = 3.2 G/DL 2240) CALC A/G RATIO (test code = 1.5 RATIO 2234) BILIRUBIN, TOTAL (test code = 0.4 MG/DL 2206) ALKALINE PHOSPHATASE (test 73 U/L code = 2204) AST (test code = 2218) 13 U/L ALT (test code = 2219) 14 U/L LIPID [id number] 00:00:00 Test Item Value Reference Range Interpretation Comments CHOLESTEROL (test code = 2210) 183 MG/DL TRIGLYCERIDES (test code = 2232) 85 MG/DL HDL CHOLESTEROL (test code = 2220) 72 MG/DL CALC LDL CHOL (test code = 2237) 93 MG/DL RISK RATIO LDL/HDL (test code = 1.29 RATIO 2238) LIPID [id number] 00:00:00 Test Item Value Reference Range Interpretation Comments CHOLESTEROL (test code = 2210) 183 MG/DL TRIGLYCERIDES (test code = 2232) 85 MG/DL HDL CHOLESTEROL (test code = 2220) 72 MG/DL CALC LDL CHOL (test code = 2237) 93 MG/DL RISK RATIO LDL/HDL (test code = 1.29 RATIO 2238) HEMOGLOBIN [id number] 00:00:00 Test Item Value Reference Range Interpretation Comments HEMOGLOBIN A1c (test code = 01501) 8.7 % HEMOGLOBIN [id number] 00:00:00 Test Item Value Reference Range Interpretation Comments HEMOGLOBIN A1c (test code = 65798) 8.7 % HEMOGLOBIN [id number] 00:00:00 Test Item Value Reference Range Interpretation Comments HEMOGLOBIN A1c (test code = 67818) 8.7 % COMPREHENSIVE METABOLIC [id number] 00:00:00 Test Item Value Reference Range Interpretation Comments GLUCOSE (test code = 2217) 231 MG/DL BUN (test code = 2208) 15 MG/DL CREATININE (test code = 2214) 0.48 MG/DL eGFR (2020 CKD-EPI) (test 104 ML/MIN/1.73 code = 86222) CALC BUN/CREAT (test code = 31 RATIO 2235) SODIUM (test code = 2231) 140 MEQ/L POTASSIUM (test code = 2228) 4.7 MEQ/L CHLORIDE (test code = 2215) 105 MEQ/L CARBON DIOXIDE (test code = 22 MEQ/L 2205) CALCIUM (test code = 2209) 10.0 MG/DL PROTEIN, TOTAL (test code = 8.1 G/DL 2228) ALBUMIN (test code = 2201) 4.9 G/DL CALC GLOBULIN (test code = 3.2 G/DL 2239) CALC A/G RATIO (test code = 1.5 RATIO 2234) BILIRUBIN, TOTAL (test code = 0.4 MG/DL 2206) ALKALINE PHOSPHATASE (test 73 U/L code = 2204) AST (test code = 2218) 13 U/L ALT (test code = 2219) 14 U/L COMPREHENSIVE METABOLIC [id number] 00:00:00 Test Item Value Reference Range Interpretation Comments GLUCOSE (test code = 2217) 231 MG/DL BUN (test code = 2208) 15 MG/DL CREATININE (test code = 2214) 0.48 MG/DL eGFR (2020 CKD-EPI) (test 104 ML/MIN/1.73 code = 38445) CALC BUN/CREAT (test code = 31 RATIO 2235) SODIUM (test code = 2231) 140 MEQ/L POTASSIUM (test code = 2228) 4.7 MEQ/L CHLORIDE (test code = 2215) 105 MEQ/L CARBON DIOXIDE (test code = 22 MEQ/L 2205) CALCIUM (test code = 2209) 10.0 MG/DL PROTEIN, TOTAL (test code = 8.1 G/DL 2228) ALBUMIN (test code = 2201) 4.9 G/DL CALC GLOBULIN (test code = 3.2 G/DL 2239) CALC A/G RATIO (test code = 1.5 RATIO 2233) BILIRUBIN, TOTAL (test code = 0.4 MG/DL 2206) ALKALINE PHOSPHATASE (test 73 U/L code = 2204) AST (test code = 2218) 13 U/L ALT (test code = 2219) 14 U/L LIPID [id number] 00:00:00 Test Item Value Reference Range Interpretation Comments CHOLESTEROL (test code = 2210) 183 MG/DL TRIGLYCERIDES (test code = 2232) 85 MG/DL HDL CHOLESTEROL (test code = 2220) 72 MG/DL CALC LDL CHOL (test code = 2237) 93 MG/DL RISK RATIO LDL/HDL (test code = 1.29 RATIO 2238) LIPID [id number] 00:00:00 Test Item Value Reference Range Interpretation Comments CHOLESTEROL (test code = 2210) 183 MG/DL TRIGLYCERIDES (test code = 2232) 85 MG/DL HDL CHOLESTEROL (test code = 2220) 72 MG/DL CALC LDL CHOL (test code = 2237) 93 MG/DL RISK RATIO LDL/HDL (test code = 1.29 RATIO 2238) HEMOGLOBIN [id number] 05:41:56 Test Item Value Reference Range Interpretation Comments HEMOGLOBIN A1c (test 7.8 % 4.2-5.6 H [employer] code = 96873) ASSOCIATION IDELINES FOR HGB A1C: PREDIABETES/INC REASED RISK . . . . . . . 5.7 -6.4% DIAGNOSIS OF DI ABETES . . . . . . . . . >=6 .5% WITH CONFIRMATION OR APPROPRIATE SYMPTOMS NOTE: ASSAY MAY BE AFFECTED BY HEMOGLOBINOPATH IES (SICKLE CELL ANEMIA, S- C DISEASE, OTHERS) OR MEAGAN FICIALLY LOWERED BY DECR EASED RED CELL SURVIVAL ( HEMOLYTIC ANEMIAS, BLOOD LOSS, ETC.). CONSIDER ALTERN ATE TESTING OR LABORATORY C ONSULTATION. UNLESS OTHERWIS E INDICATED, ALL TESTING PER FORMED ATCLINICAL PATH [facility], [place]. [address] [place] [address] LABORATORY DIRE CTOR: ESTER TARIQ M.D. [place] NUMBER [id number] [facility]. [id number] HEMOGLOBIN [id number] 00:00:00 Test Item Value Reference Range Interpretation Comments HEMOGLOBIN A1c (test code = 14899) 7.8 % HEMOGLOBIN [id number] 00:00:00 Test Item Value Reference Range Interpretation Comments HEMOGLOBIN A1c (test code = 01484) 7.8 % HEMOGLOBIN [id number] 00:00:00 Test Item Value Reference Range Interpretation Comments HEMOGLOBIN A1c (test code = 19210) 7.8 % HEMOGLOBIN [id number] 00:00:00 Test Item Value Reference Range Interpretation Comments HEMOGLOBIN A1c (test code = 66626) 7.8 % HEMOGLOBIN [id number] 00:00:00 Test Item Value Reference Range Interpretation Comments HEMOGLOBIN A1c (test code = 91552) 7.8 % HEMOGLOBIN [id number] 00:00:00 Test Item Value Reference Range Interpretation Comments HEMOGLOBIN A1c (test code = 10336) 7.8 % HEMOGLOBIN [id number] 00:00:00 Test Item Value Reference Range Interpretation Comments HEMOGLOBIN A1c (test code = 66306) 8.1 % HEMOGLOBIN [id number] 00:00:00 Test Item Value Reference Range Interpretation Comments HEMOGLOBIN A1c (test code = 09134) 8.1 % HEMOGLOBIN [id number] 00:00:00 Test Item Value Reference Range Interpretation Comments HEMOGLOBIN A1c (test code = 60037) 8.1 % HEMOGLOBIN [id number] 00:00:00 Test Item Value Reference Range Interpretation Comments HEMOGLOBIN A1c (test code = 88058) 8.1 % HEMOGLOBIN [id number] 00:00:00 Test Item Value Reference Range Interpretation Comments HEMOGLOBIN A1c (test code = 45628) 8.1 % HEMOGLOBIN [id number] 00:00:00 Test Item Value Reference Range Interpretation Comments HEMOGLOBIN A1c (test code = 88216) 8.1 % LIPID [id number] 00:00:00 Test Item Value Reference Range Interpretation Comments CHOLESTEROL (test code = 2210) 189 MG/DL TRIGLYCERIDES (test code = 2232) 147 MG/DL HDL CHOLESTEROL (test code = 2220) 53 MG/DL CALC LDL CHOL (test code = 2237) 110 MG/DL RISK RATIO LDL/HDL (test code = 2.08 RATIO 2238) LIPID [id number] 00:00:00 Test Item Value Reference Range Interpretation Comments CHOLESTEROL (test code = 2210) 189 MG/DL TRIGLYCERIDES (test code = 2232) 147 MG/DL HDL CHOLESTEROL (test code = 2220) 53 MG/DL CALC LDL CHOL (test code = 2237) 110 MG/DL RISK RATIO LDL/HDL (test code = 2.08 RATIO 2238) LIPID [id number] 00:00:00 Test Item Value Reference Range Interpretation Comments CHOLESTEROL (test code = 2210) 189 MG/DL TRIGLYCERIDES (test code = 2232) 147 MG/DL HDL CHOLESTEROL (test code = 2220) 53 MG/DL CALC LDL CHOL (test code = 2237) 110 MG/DL RISK RATIO LDL/HDL (test code = 2.08 RATIO 2238) LIPID [id number] 00:00:00 Test Item Value Reference Range Interpretation Comments CHOLESTEROL (test code = 2210) 189 MG/DL TRIGLYCERIDES (test code = 2232) 147 MG/DL HDL CHOLESTEROL (test code = 2220) 53 MG/DL CALC LDL CHOL (test code = 2237) 110 MG/DL RISK RATIO LDL/HDL (test code = 2.08 RATIO 2238) HEMOGLOBIN [id number] 00:00:00 Test Item Value Reference Range Interpretation Comments HEMOGLOBIN A1c (test code = 33478) 7.9 % HEMOGLOBIN [id number] 00:00:00 Test Item Value Reference Range Interpretation Comments HEMOGLOBIN A1c (test code = 72255) 7.9 % HEMOGLOBIN [id number] 00:00:00 Test Item Value Reference Range Interpretation Comments HEMOGLOBIN A1c (test code = 00272) 7.9 % COMPREHENSIVE METABOLIC [id number] 00:00:00 Test Item Value Reference Range Interpretation Comments GLUCOSE (test code = 2217) 179 MG/DL BUN (test code = 2208) 15 MG/DL CREATININE (test code = 2214) 0.61 MG/DL eGFR AMER. (test code 109 ML/MIN/1.73 = 15651) eGFR NON- AMER. (test 94 ML/MIN/1.73 code = 83473) CALC BUN/CREAT (test code = 25 RATIO 2235) SODIUM (test code = 2231) 139 MEQ/L POTASSIUM (test code = 2228) 4.4 MEQ/L CHLORIDE (test code = 2215) 102 MEQ/L CARBON DIOXIDE (test code = 23 MEQ/L 220) CALCIUM (test code = 2209) 9.6 MG/DL PROTEIN, TOTAL (test code = 8.1 G/DL 2228) ALBUMIN (test code = 2201) 4.7 G/DL CALC GLOBULIN (test code = 3.4 G/DL 2240) CALC A/G RATIO (test code = 1.4 RATIO 2234) BILIRUBIN, TOTAL (test code = 0.5 MG/DL 2206) ALKALINE PHOSPHATASE (test 67 U/L code = 2204) AST (test code = 2218) 14 U/L ALT (test code = 2219) 13 U/L COMPREHENSIVE METABOLIC [id number] 00:00:00 Test Item Value Reference Range Interpretation Comments GLUCOSE (test code = 2217) 179 MG/DL BUN (test code = 2208) 15 MG/DL CREATININE (test code = 2214) 0.61 MG/DL eGFR AMER. (test code 109 ML/MIN/1.73 = 69891) eGFR NON- AMER. (test 94 ML/MIN/1.73 code = 09130) CALC BUN/CREAT (test code = 25 RATIO 2235) SODIUM (test code = 2231) 139 MEQ/L POTASSIUM (test code = 2228) 4.4 MEQ/L CHLORIDE (test code = 2215) 102 MEQ/L CARBON DIOXIDE (test code = 23 MEQ/L 2206) CALCIUM (test code = 2209) 9.6 MG/DL PROTEIN, TOTAL (test code = 8.1 G/DL 2228) ALBUMIN (test code = 2201) 4.7 G/DL CALC GLOBULIN (test code = 3.4 G/DL 2240) CALC A/G RATIO (test code = 1.4 RATIO 2234) BILIRUBIN, TOTAL (test code = 0.5 MG/DL 2206) ALKALINE PHOSPHATASE (test 67 U/L code = 2204) AST (test code = 2218) 14 U/L ALT (test code = 2219) 13 U/L LIPID [id number] 00:00:00 Test Item Value Reference Range Interpretation Comments CHOLESTEROL (test code = 2210) 225 MG/DL TRIGLYCERIDES (test code = 2232) 111 MG/DL HDL CHOLESTEROL (test code = 2220) 69 MG/DL CALC LDL CHOL (test code = 2237) 134 MG/DL RISK RATIO LDL/HDL (test code = 1.94 RATIO 2238) LIPID [id number] 00:00:00 Test Item Value Reference Range Interpretation Comments CHOLESTEROL (test code = 2210) 225 MG/DL TRIGLYCERIDES (test code = 2232) 111 MG/DL HDL CHOLESTEROL (test code = 2220) 69 MG/DL CALC LDL CHOL (test code = 2237) 134 MG/DL RISK RATIO LDL/HDL (test code = 1.94 RATIO 2238) HEMOGLOBIN [id number] 00:00:00 Test Item Value Reference Range Interpretation Comments HEMOGLOBIN A1c (test code = 40268) 7.9 % HEMOGLOBIN [id number] 00:00:00 Test Item Value Reference Range Interpretation Comments HEMOGLOBIN A1c (test code = 46804) 7.9 % HEMOGLOBIN [id number] 00:00:00 Test Item Value Reference Range Interpretation Comments HEMOGLOBIN A1c (test code = 62049) 7.9 % COMPREHENSIVE METABOLIC [id number] 00:00:00 Test Item Value Reference Range Interpretation Comments GLUCOSE (test code = 2217) 179 MG/DL BUN (test code = 2208) 15 MG/DL CREATININE (test code = 2214) 0.61 MG/DL eGFR AMER. (test code 109 ML/MIN/1.73 = 28476) eGFR NON- AMER. (test 94 ML/MIN/1.73 code = 58736) CALC BUN/CREAT (test code = 25 RATIO 2235) SODIUM (test code = 2231) 139 MEQ/L POTASSIUM (test code = 2228) 4.4 MEQ/L CHLORIDE (test code = 2215) 102 MEQ/L CARBON DIOXIDE (test code = 23 MEQ/L 2205) CALCIUM (test code = 2209) 9.6 MG/DL PROTEIN, TOTAL (test code = 8.1 G/DL 222) ALBUMIN (test code = 2201) 4.7 G/DL CALC GLOBULIN (test code = 3.4 G/DL 2240) CALC A/G RATIO (test code = 1.4 RATIO 2234) BILIRUBIN, TOTAL (test code = 0.5 MG/DL 2206) ALKALINE PHOSPHATASE (test 67 U/L code = 2204) AST (test code = 2218) 14 U/L ALT (test code = 2219) 13 U/L COMPREHENSIVE METABOLIC [id number] 00:00:00 Test Item Value Reference Range Interpretation Comments GLUCOSE (test code = 2217) 179 MG/DL BUN (test code = 2208) 15 MG/DL CREATININE (test code = 2214) 0.61 MG/DL eGFR AMER. (test code 109 ML/MIN/1.73 = 62525) eGFR NON- AMER. (test 94 ML/MIN/1.73 code = 89798) CALC BUN/CREAT (test code = 25 RATIO 2235) SODIUM (test code = 2231) 139 MEQ/L POTASSIUM (test code = 2228) 4.4 MEQ/L CHLORIDE (test code = 2215) 102 MEQ/L CARBON DIOXIDE (test code = 23 MEQ/L 2205) CALCIUM (test code = 2209) 9.6 MG/DL PROTEIN, TOTAL (test code = 8.1 G/DL 2228) ALBUMIN (test code = 2201) 4.7 G/DL CALC GLOBULIN (test code = 3.4 G/DL 2240) CALC A/G RATIO (test code = 1.4 RATIO 2234) BILIRUBIN, TOTAL (test code = 0.5 MG/DL 2206) ALKALINE PHOSPHATASE (test 67 U/L code = 2204) AST (test code = 2218) 14 U/L ALT (test code = 2219) 13 U/L LIPID [id number] 00:00:00 Test Item Value Reference Range Interpretation Comments CHOLESTEROL (test code = 2210) 225 MG/DL TRIGLYCERIDES (test code = 2232) 111 MG/DL HDL CHOLESTEROL (test code = 2220) 69 MG/DL CALC LDL CHOL (test code = 2237) 134 MG/DL RISK RATIO LDL/HDL (test code = 1.94 RATIO 2238) LIPID [id number] 00:00:00 Test Item Value Reference Range Interpretation Comments CHOLESTEROL (test code = 2210) 225 MG/DL TRIGLYCERIDES (test code = 2232) 111 MG/DL HDL CHOLESTEROL (test code = 2220) 69 MG/DL CALC LDL CHOL (test code = 2237) 134 MG/DL RISK RATIO LDL/HDL (test code = 1.94 RATIO 2238) HEMOGLOBIN [id number] 00:00:00 Test Item Value Reference Range Interpretation Comments HEMOGLOBIN A1c (test code = 76239) 7.0 % HEMOGLOBIN [id number] 00:00:00 Test Item Value Reference Range Interpretation Comments HEMOGLOBIN A1c (test code = 64075) 7.0 % HEMOGLOBIN [id number] 00:00:00 Test Item Value Reference Range Interpretation Comments HEMOGLOBIN A1c (test code = 00277) 7.0 % LIPID [id number] 00:00:00 Test Item Value Reference Range Interpretation Comments CHOLESTEROL (test code = 2210) 218 MG/DL TRIGLYCERIDES (test code = 2232) 90 MG/DL HDL CHOLESTEROL (test code = 2220) 61 MG/DL CALC LDL CHOL (test code = 2237) 138 MG/DL RISK RATIO LDL/HDL (test code = 2.26 RATIO 2238) LIPID [id number] 00:00:00 Test Item Value Reference Range Interpretation Comments CHOLESTEROL (test code = 2210) 218 MG/DL TRIGLYCERIDES (test code = 2232) 90 MG/DL HDL CHOLESTEROL (test code = 2220) 61 MG/DL CALC LDL CHOL (test code = 2237) 138 MG/DL RISK RATIO LDL/HDL (test code = 2.26 RATIO 2238) HEMOGLOBIN [id number] 00:00:00 Test Item Value Reference Range Interpretation Comments HEMOGLOBIN A1c (test code = 34485) 7.0 % HEMOGLOBIN [id number] 00:00:00 Test Item Value Reference Range Interpretation Comments HEMOGLOBIN A1c (test code = 41733) 7.0 % HEMOGLOBIN [id number] 00:00:00 Test Item Value Reference Range Interpretation Comments HEMOGLOBIN A1c (test code = 37481) 7.0 % LIPID [id number] 00:00:00 Test Item Value Reference Range Interpretation Comments CHOLESTEROL (test code = 2210) 218 MG/DL TRIGLYCERIDES (test code = 2232) 90 MG/DL HDL CHOLESTEROL (test code = 2220) 61 MG/DL CALC LDL CHOL (test code = 2237) 138 MG/DL RISK RATIO LDL/HDL (test code = 2.26 RATIO 2238) LIPID [id number] 00:00:00 Test Item Value Reference Range Interpretation Comments CHOLESTEROL (test code = 2210) 218 MG/DL TRIGLYCERIDES (test code = 2232) 90 MG/DL HDL CHOLESTEROL (test code = 2220) 61 MG/DL CALC LDL CHOL (test code = 2237) 138 MG/DL RISK RATIO LDL/HDL (test code = 2.26 RATIO 2238) CBC W/AUTO [id number] 00:00:00 Test Item Value Reference Range Interpretation Comments WBC (test code = 1001) 6.2 K/UL RBC (test code = 1002) 4.19 M/UL HEMOGLOBIN (test code = 1003) 12.8 G/DL HEMATOCRIT (test code = 1004) 37.2 % MCV (test code = 1005) 88.8 fL MCH (test code = 1006) 30.5 PG MCHC (test code = 1007) 34.4 G/DL RDW (test code = 1038) 12.2 % NEUTROPHILS (test code = 1008) 59.7 % LYMPHOCYTES (test code = 1010) 32.1 % MONOCYTES (test code = 1011) 6.5 % EOSINOPHILS (test code = 1012) 1.5 % BASOPHILS (test code = 1013) 0.2 % PLATELET COUNT (test code = 1015) 245 K/UL CBC W/AUTO [id number] 00:00:00 Test Item Value Reference Range Interpretation Comments WBC (test code = 1001) 6.2 K/UL RBC (test code = 1002) 4.19 M/UL HEMOGLOBIN (test code = 1003) 12.8 G/DL HEMATOCRIT (test code = 1004) 37.2 % MCV (test code = 1005) 88.8 fL MCH (test code = 1006) 30.5 PG MCHC (test code = 1007) 34.4 G/DL RDW (test code = 1038) 12.2 % NEUTROPHILS (test code = 1008) 59.7 % LYMPHOCYTES (test code = 1010) 32.1 % MONOCYTES (test code = 1011) 6.5 % EOSINOPHILS (test code = 1012) 1.5 % BASOPHILS (test code = 1013) 0.2 % PLATELET COUNT (test code = 1015) 245 K/UL CBC W/AUTO [id number] 00:00:00 Test Item Value Reference Range Interpretation Comments WBC (test code = 1001) 6.2 K/UL RBC (test code = 1002) 4.19 M/UL HEMOGLOBIN (test code = 1003) 12.8 G/DL HEMATOCRIT (test code = 1004) 37.2 % MCV (test code = 1005) 88.8 fL MCH (test code = 1006) 30.5 PG MCHC (test code = 1007) 34.4 G/DL RDW (test code = 1038) 12.2 % NEUTROPHILS (test code = 1008) 59.7 % LYMPHOCYTES (test code = 1010) 32.1 % MONOCYTES (test code = 1011) 6.5 % EOSINOPHILS (test code = 1012) 1.5 % BASOPHILS (test code = 1013) 0.2 % PLATELET COUNT (test code = 1015) 245 K/UL COMPREHENSIVE METABOLIC [id number] 00:00:00 Test Item Value Reference Range Interpretation Comments GLUCOSE (test code = 2217) 293 MG/DL BUN (test code = 2208) 11 MG/DL CREATININE (test code = 2214) 0.73 MG/DL eGFR AMER. (test code 99 ML/MIN/1.73 = 42172) eGFR NON- AMER. (test 86 ML/MIN/1.73 code = 96539) CALC BUN/CREAT (test code = 15 RATIO 2235) SODIUM (test code = 2231) 138 MEQ/L POTASSIUM (test code = 2228) 4.1 MEQ/L CHLORIDE (test code = 2215) 100 MEQ/L CARBON DIOXIDE (test code = 21 MEQ/L 220) CALCIUM (test code = 2209) 9.9 MG/DL PROTEIN, TOTAL (test code = 8.0 G/DL 2228) ALBUMIN (test code = 2201) 4.7 G/DL CALC GLOBULIN (test code = 3.3 G/DL 2240) CALC A/G RATIO (test code = 1.4 RATIO 223) BILIRUBIN, TOTAL (test code = 0.4 MG/DL 2206) ALKALINE PHOSPHATASE (test 63 U/L code = 2204) AST (test code = 2218) 20 U/L ALT (test code = 2219) 18 U/L COMPREHENSIVE METABOLIC [id number] 00:00:00 Test Item Value Reference Range Interpretation Comments GLUCOSE (test code = 2217) 293 MG/DL BUN (test code = 2208) 11 MG/DL CREATININE (test code = 2214) 0.73 MG/DL eGFR AMER. (test code 99 ML/MIN/1.73 = 68492) eGFR NON- AMER. (test 86 ML/MIN/1.73 code = 90110) CALC BUN/CREAT (test code = 15 RATIO 2235) SODIUM (test code = 2231) 138 MEQ/L POTASSIUM (test code = 2228) 4.1 MEQ/L CHLORIDE (test code = 2215) 100 MEQ/L CARBON DIOXIDE (test code = 21 MEQ/L 2205) CALCIUM (test code = 2209) 9.9 MG/DL PROTEIN, TOTAL (test code = 8.0 G/DL 2228) ALBUMIN (test code = 2201) 4.7 G/DL CALC GLOBULIN (test code = 3.3 G/DL 0) CALC A/G RATIO (test code = 1.4 RATIO 4) BILIRUBIN, TOTAL (test code = 0.4 MG/DL 2206) ALKALINE PHOSPHATASE (test 63 U/L code = 2204) AST (test code = 2218) 20 U/L ALT (test code = 2219) 18 U/L [id number] 00:00:00 Test Item Value Reference Range Interpretation Comments LIPASE (test code = 2057) 18 U/L [id number] 00:00:00 Test Item Value Reference Range Interpretation Comments LIPASE (test code = 2057) 18 U/L [id number] 00:00:00 Test Item Value Reference Range Interpretation Comments LIPASE (test code = 2057) 18 U/L [id number] 00:00:00 Test Item Value Reference Range Interpretation Comments AMYLASE (test code = 2204) 64 U/L [id number] 00:00:00 Test Item Value Reference Range Interpretation Comments AMYLASE (test code = 2204) 64 U/L HEMOGLOBIN [id number] 00:00:00 Test Item Value Reference Range Interpretation Comments HEMOGLOBIN A1c (test code = 93126) 7.3 % HEMOGLOBIN [id number] 00:00:00 Test Item Value Reference Range Interpretation Comments HEMOGLOBIN A1c (test code = 16752) 7.3 % HEMOGLOBIN [id number] 00:00:00 Test Item Value Reference Range Interpretation Comments HEMOGLOBIN A1c (test code = 03362) 7.3 % CBC W/AUTO [id number] 00:00:00 Test Item Value Reference Range Interpretation Comments WBC (test code = 1001) 6.2 K/UL RBC (test code = 1002) 4.19 M/UL HEMOGLOBIN (test code = 1003) 12.8 G/DL HEMATOCRIT (test code = 1004) 37.2 % MCV (test code = 1005) 88.8 fL MCH (test code = 1006) 30.5 PG MCHC (test code = 1007) 34.4 G/DL RDW (test code = 1038) 12.2 % NEUTROPHILS (test code = 1008) 59.7 % LYMPHOCYTES (test code = 1010) 32.1 % MONOCYTES (test code = 1011) 6.5 % EOSINOPHILS (test code = 1012) 1.5 % BASOPHILS (test code = 1013) 0.2 % PLATELET COUNT (test code = 1015) 245 K/UL CBC W/AUTO [id number] 00:00:00 Test Item Value Reference Range Interpretation Comments WBC (test code = 1001) 6.2 K/UL RBC (test code = 1002) 4.19 M/UL HEMOGLOBIN (test code = 1003) 12.8 G/DL HEMATOCRIT (test code = 1004) 37.2 % MCV (test code = 1005) 88.8 fL MCH (test code = 1006) 30.5 PG MCHC (test code = 1007) 34.4 G/DL RDW (test code = 1038) 12.2 % NEUTROPHILS (test code = 1008) 59.7 % LYMPHOCYTES (test code = 1010) 32.1 % MONOCYTES (test code = 1011) 6.5 % EOSINOPHILS (test code = 1012) 1.5 % BASOPHILS (test code = 1013) 0.2 % PLATELET COUNT (test code = 1015) 245 K/UL CBC W/AUTO [id number] 00:00:00 Test Item Value Reference Range Interpretation Comments WBC (test code = 1001) 6.2 K/UL RBC (test code = 1002) 4.19 M/UL HEMOGLOBIN (test code = 1003) 12.8 G/DL HEMATOCRIT (test code = 1004) 37.2 % MCV (test code = 1005) 88.8 fL MCH (test code = 1006) 30.5 PG MCHC (test code = 1007) 34.4 G/DL RDW (test code = 1038) 12.2 % NEUTROPHILS (test code = 1008) 59.7 % LYMPHOCYTES (test code = 1010) 32.1 % MONOCYTES (test code = 1011) 6.5 % EOSINOPHILS (test code = 1012) 1.5 % BASOPHILS (test code = 1013) 0.2 % PLATELET COUNT (test code = 1015) 245 K/UL COMPREHENSIVE METABOLIC [id number] 00:00:00 Test Item Value Reference Range Interpretation Comments GLUCOSE (test code = 2217) 293 MG/DL BUN (test code = 2208) 11 MG/DL CREATININE (test code = 2214) 0.73 MG/DL eGFR AMER. (test code 99 ML/MIN/1.73 = 92580) eGFR NON- AMER. (test 86 ML/MIN/1.73 code = 50905) CALC BUN/CREAT (test code = 15 RATIO 2235) SODIUM (test code = 2231) 138 MEQ/L POTASSIUM (test code = 2228) 4.1 MEQ/L CHLORIDE (test code = 2215) 100 MEQ/L CARBON DIOXIDE (test code = 21 MEQ/L 220) CALCIUM (test code = 2209) 9.9 MG/DL PROTEIN, TOTAL (test code = 8.0 G/DL 2228) ALBUMIN (test code = 2201) 4.7 G/DL CALC GLOBULIN (test code = 3.3 G/DL 2240) CALC A/G RATIO (test code = 1.4 RATIO 2234) BILIRUBIN, TOTAL (test code = 0.4 MG/DL 2206) ALKALINE PHOSPHATASE (test 63 U/L code = 2204) AST (test code = 2218) 20 U/L ALT (test code = 2219) 18 U/L COMPREHENSIVE METABOLIC [id number] 00:00:00 Test Item Value Reference Range Interpretation Comments GLUCOSE (test code = 2217) 293 MG/DL BUN (test code = 2208) 11 MG/DL CREATININE (test code = 2214) 0.73 MG/DL eGFR AMER. (test code 99 ML/MIN/1.73 = 32372) eGFR NON- AMER. (test 86 ML/MIN/1.73 code = 91269) CALC BUN/CREAT (test code = 15 RATIO 2235) SODIUM (test code = 2231) 138 MEQ/L POTASSIUM (test code = 2228) 4.1 MEQ/L CHLORIDE (test code = 2215) 100 MEQ/L CARBON DIOXIDE (test code = 21 MEQ/L 2205) CALCIUM (test code = 2209) 9.9 MG/DL PROTEIN, TOTAL (test code = 8.0 G/DL 2228) ALBUMIN (test code = 220) 4.7 G/DL CALC GLOBULIN (test code = 3.3 G/DL 2239) CALC A/G RATIO (test code = 1.4 RATIO 2233) BILIRUBIN, TOTAL (test code = 0.4 MG/DL 2206) ALKALINE PHOSPHATASE (test 63 U/L code = 2204) AST (test code = 2218) 20 U/L ALT (test code = 2219) 18 U/L [id number] 00:00:00 Test Item Value Reference Range Interpretation Comments LIPASE (test code = 2057) 18 U/L [id number] 00:00:00 Test Item Value Reference Range Interpretation Comments LIPASE (test code = 2057) 18 U/L [id number] 00:00:00 Test Item Value Reference Range Interpretation Comments LIPASE (test code = 2057) 18 U/L [id number] 00:00:00 Test Item Value Reference Range Interpretation Comments AMYLASE (test code = 5) 64 U/L [id number] 00:00:00 Test Item Value Reference Range Interpretation Comments AMYLASE (test code = 5) 64 U/L HEMOGLOBIN [id number] 00:00:00 Test Item Value Reference Range Interpretation Comments HEMOGLOBIN A1c (test code = 58810) 7.3 % HEMOGLOBIN [id number] 00:00:00 Test Item Value Reference Range Interpretation Comments HEMOGLOBIN A1c (test code = 12450) 7.3 % HEMOGLOBIN [id number] 00:00:00 Test Item Value Reference Range Interpretation Comments HEMOGLOBIN A1c (test code = 57694) 7.3 % COMPREHENSIVE METABOLIC [id number] 00:00:00 Test Item Value Reference Range Interpretation Comments GLUCOSE (test code = 2217) 143 MG/DL BUN (test code = 2208) 12 MG/DL CREATININE (test code = 2214) 0.56 MG/DL eGFR AMER. (test code 113 ML/MIN/1.73 = 65578) eGFR NON- AMER. (test 98 ML/MIN/1.73 code = 14968) CALC BUN/CREAT (test code = 21 RATIO 2235) SODIUM (test code = 2231) 139 MEQ/L POTASSIUM (test code = 2228) 4.4 MEQ/L CHLORIDE (test code = 2215) 103 MEQ/L CARBON DIOXIDE (test code = 24 MEQ/L 2205) CALCIUM (test code = 2209) 9.4 MG/DL PROTEIN, TOTAL (test code = 7.9 G/DL 2228) ALBUMIN (test code = 2201) 4.6 G/DL CALC GLOBULIN (test code = 3.3 G/DL 2239) CALC A/G RATIO (test code = 1.4 RATIO 2233) BILIRUBIN, TOTAL (test code = 0.3 MG/DL 2206) ALKALINE PHOSPHATASE (test 82 U/L code = 2204) AST (test code = 2218) 16 U/L ALT (test code = 2219) 14 U/L COMPREHENSIVE METABOLIC [id number] 00:00:00 Test Item Value Reference Range Interpretation Comments GLUCOSE (test code = 2217) 143 MG/DL BUN (test code = 2208) 12 MG/DL CREATININE (test code = 2214) 0.56 MG/DL eGFR AMER. (test code 113 ML/MIN/1.73 = 57991) eGFR NON- AMER. (test 98 ML/MIN/1.73 code = 35061) CALC BUN/CREAT (test code = 21 RATIO 2235) SODIUM (test code = 2231) 139 MEQ/L POTASSIUM (test code = 2228) 4.4 MEQ/L CHLORIDE (test code = 2215) 103 MEQ/L CARBON DIOXIDE (test code = 24 MEQ/L 220) CALCIUM (test code = 2209) 9.4 MG/DL PROTEIN, TOTAL (test code = 7.9 G/DL 2228) ALBUMIN (test code = 2201) 4.6 G/DL CALC GLOBULIN (test code = 3.3 G/DL 2239) CALC A/G RATIO (test code = 1.4 RATIO 2234) BILIRUBIN, TOTAL (test code = 0.3 MG/DL 2206) ALKALINE PHOSPHATASE (test 82 U/L code = 2204) AST (test code = 2218) 16 U/L ALT (test code = 2219) 14 U/L LIPID PANEL WITH REFLEX DIRECT [id number] 00:00:00 Test Item Value Reference Range Interpretation Comments CHOLESTEROL (test code = 2210) 182 MG/DL TRIGLYCERIDES (test code = 2232) 70 MG/DL HDL CHOLESTEROL (test code = 2220) 57 MG/DL CALC LDL CHOL (test code = 2237) 109 MG/DL RISK RATIO LDL/HDL (test code = 1.91 RATIO 2238) LIPID PANEL WITH REFLEX DIRECT [id number] 00:00:00 Test Item Value Reference Range Interpretation Comments CHOLESTEROL (test code = 2210) 182 MG/DL TRIGLYCERIDES (test code = 2232) 70 MG/DL HDL CHOLESTEROL (test code = 2220) 57 MG/DL CALC LDL CHOL (test code = 2237) 109 MG/DL RISK RATIO LDL/HDL (test code = 1.91 RATIO 2238) HEMOGLOBIN [id number] 00:00:00 Test Item Value Reference Range Interpretation Comments HEMOGLOBIN A1c (test code = 48273) 6.5 % HEMOGLOBIN [id number] 00:00:00 Test Item Value Reference Range Interpretation Comments HEMOGLOBIN A1c (test code = 72636) 6.5 % HEMOGLOBIN [id number] 00:00:00 Test Item Value Reference Range Interpretation Comments HEMOGLOBIN A1c (test code = 75456) 6.5 % COMPREHENSIVE METABOLIC [id number] 00:00:00 Test Item Value Reference Range Interpretation Comments GLUCOSE (test code = 2217) 143 MG/DL BUN (test code = 2208) 12 MG/DL CREATININE (test code = 2214) 0.56 MG/DL eGFR AMER. (test code 113 ML/MIN/1.73 = 92967) eGFR NON- AMER. (test 98 ML/MIN/1.73 code = 60037) CALC BUN/CREAT (test code = 21 RATIO 2235) SODIUM (test code = 2231) 139 MEQ/L POTASSIUM (test code = 2228) 4.4 MEQ/L CHLORIDE (test code = 2215) 103 MEQ/L CARBON DIOXIDE (test code = 24 MEQ/L 2205) CALCIUM (test code = 2209) 9.4 MG/DL PROTEIN, TOTAL (test code = 7.9 G/DL 222) ALBUMIN (test code = 2201) 4.6 G/DL CALC GLOBULIN (test code = 3.3 G/DL 2240) CALC A/G RATIO (test code = 1.4 RATIO 2234) BILIRUBIN, TOTAL (test code = 0.3 MG/DL 2206) ALKALINE PHOSPHATASE (test 82 U/L code = 2204) AST (test code = 2218) 16 U/L ALT (test code = 2219) 14 U/L COMPREHENSIVE METABOLIC [id number] 00:00:00 Test Item Value Reference Range Interpretation Comments GLUCOSE (test code = 2217) 143 MG/DL BUN (test code = 2208) 12 MG/DL CREATININE (test code = 2214) 0.56 MG/DL eGFR AMER. (test code 113 ML/MIN/1.73 = 88307) eGFR NON- AMER. (test 98 ML/MIN/1.73 code = 30384) CALC BUN/CREAT (test code = 21 RATIO 2235) SODIUM (test code = 2231) 139 MEQ/L POTASSIUM (test code = 2228) 4.4 MEQ/L CHLORIDE (test code = 2215) 103 MEQ/L CARBON DIOXIDE (test code = 24 MEQ/L 2205) CALCIUM (test code = 2209) 9.4 MG/DL PROTEIN, TOTAL (test code = 7.9 G/DL 2228) ALBUMIN (test code = 2201) 4.6 G/DL CALC GLOBULIN (test code = 3.3 G/DL 2240) CALC A/G RATIO (test code = 1.4 RATIO 2234) BILIRUBIN, TOTAL (test code = 0.3 MG/DL 7) ALKALINE PHOSPHATASE (test 82 U/L code = 2204) AST (test code = 2218) 16 U/L ALT (test code = 2219) 14 U/L LIPID PANEL WITH REFLEX DIRECT [id number] 00:00:00 Test Item Value Reference Range Interpretation Comments CHOLESTEROL (test code = 2210) 182 MG/DL TRIGLYCERIDES (test code = 2232) 70 MG/DL HDL CHOLESTEROL (test code = 2220) 57 MG/DL CALC LDL CHOL (test code = 2237) 109 MG/DL RISK RATIO LDL/HDL (test code = 1.91 RATIO 2238) LIPID PANEL WITH REFLEX DIRECT [id number] 00:00:00 Test Item Value Reference Range Interpretation Comments CHOLESTEROL (test code = 2210) 182 MG/DL TRIGLYCERIDES (test code = 2232) 70 MG/DL HDL CHOLESTEROL (test code = 2220) 57 MG/DL CALC LDL CHOL (test code = 2237) 109 MG/DL RISK RATIO LDL/HDL (test code = 1.91 RATIO 2238) HEMOGLOBIN [id number] 00:00:00 Test Item Value Reference Range Interpretation Comments HEMOGLOBIN A1c (test code = 08056) 6.5 % HEMOGLOBIN [id number] 00:00:00 Test Item Value Reference Range Interpretation Comments HEMOGLOBIN A1c (test code = 95979) 6.5 % HEMOGLOBIN [id number] 00:00:00 Test Item Value Reference Range Interpretation Comments HEMOGLOBIN A1c (test code = 55536) 6.5 % HEMOGLOBIN [id number] 00:00:00 Test Item Value Reference Range Interpretation Comments HEMOGLOBIN A1c (test code = 83404) 6.4 % HEMOGLOBIN [id number] 00:00:00 Test Item Value Reference Range Interpretation Comments HEMOGLOBIN A1c (test code = 38604) 6.4 % HEMOGLOBIN [id number] 00:00:00 Test Item Value Reference Range Interpretation Comments HEMOGLOBIN A1c (test code = 24091) 6.4 % COMPREHENSIVE METABOLIC [id number] 00:00:00 Test Item Value Reference Range Interpretation Comments GLUCOSE (test code = 2217) 176 MG/DL BUN (test code = 2208) 13 MG/DL CREATININE (test code = 2214) 0.56 MG/DL eGFR AMER. (test code 113 ML/MIN/1.73 = 29948) eGFR NON- AMER. (test 98 ML/MIN/1.73 code = 54954) CALC BUN/CREAT (test code = 23 RATIO 2235) SODIUM (test code = 2231) 139 MEQ/L POTASSIUM (test code = 2228) 4.7 MEQ/L CHLORIDE (test code = 2215) 102 MEQ/L CARBON DIOXIDE (test code = 24 MEQ/L 2205) CALCIUM (test code = 2209) 9.7 MG/DL PROTEIN, TOTAL (test code = 8.1 G/DL 222) ALBUMIN (test code = 2201) 4.7 G/DL CALC GLOBULIN (test code = 3.4 G/DL 2240) CALC A/G RATIO (test code = 1.4 RATIO 2234) BILIRUBIN, TOTAL (test code = 0.4 MG/DL 2206) ALKALINE PHOSPHATASE (test 106 U/L code = 2204) AST (test code = 2218) 18 U/L ALT (test code = 2219) 15 U/L COMPREHENSIVE METABOLIC [id number] 00:00:00 Test Item Value Reference Range Interpretation Comments GLUCOSE (test code = 2217) 176 MG/DL BUN (test code = 2208) 13 MG/DL CREATININE (test code = 2214) 0.56 MG/DL eGFR AMER. (test code 113 ML/MIN/1.73 = 59076) eGFR NON- AMER. (test 98 ML/MIN/1.73 code = 00746) CALC BUN/CREAT (test code = 23 RATIO 2235) SODIUM (test code = 2231) 139 MEQ/L POTASSIUM (test code = 2228) 4.7 MEQ/L CHLORIDE (test code = 2215) 102 MEQ/L CARBON DIOXIDE (test code = 24 MEQ/L 2205) CALCIUM (test code = 2209) 9.7 MG/DL PROTEIN, TOTAL (test code = 8.1 G/DL 2228) ALBUMIN (test code = 2201) 4.7 G/DL CALC GLOBULIN (test code = 3.4 G/DL 2240) CALC A/G RATIO (test code = 1.4 RATIO 2234) BILIRUBIN, TOTAL (test code = 0.4 MG/DL 2206) ALKALINE PHOSPHATASE (test 106 U/L code = 2204) AST (test code = 2218) 18 U/L ALT (test code = 2219) 15 U/L LIPID [id number] 00:00:00 Test Item Value Reference Range Interpretation Comments CHOLESTEROL (test code = 2210) 227 MG/DL TRIGLYCERIDES (test code = 2232) 137 MG/DL HDL CHOLESTEROL (test code = 2220) 59 MG/DL CALC LDL CHOL (test code = 2237) 142 MG/DL RISK RATIO LDL/HDL (test code = 2.41 RATIO 2238) LIPID [id number] 00:00:00 Test Item Value Reference Range Interpretation Comments CHOLESTEROL (test code = 2210) 227 MG/DL TRIGLYCERIDES (test code = 2232) 137 MG/DL HDL CHOLESTEROL (test code = 2220) 59 MG/DL CALC LDL CHOL (test code = 2237) 142 MG/DL RISK RATIO LDL/HDL (test code = 2.41 RATIO 2238) HEMOGLOBIN [id number] 00:00:00 Test Item Value Reference Range Interpretation Comments HEMOGLOBIN A1c (test code = 86471) 6.4 % HEMOGLOBIN [id number] 00:00:00 Test Item Value Reference Range Interpretation Comments HEMOGLOBIN A1c (test code = 56394) 6.4 % HEMOGLOBIN [id number] 00:00:00 Test Item Value Reference Range Interpretation Comments HEMOGLOBIN A1c (test code = 80523) 6.4 % COMPREHENSIVE METABOLIC [id number] 00:00:00 Test Item Value Reference Range Interpretation Comments GLUCOSE (test code = 2217) 176 MG/DL BUN (test code = 2208) 13 MG/DL CREATININE (test code = 2214) 0.56 MG/DL eGFR AMER. (test code 113 ML/MIN/1.73 = 89202) eGFR NON- AMER. (test 98 ML/MIN/1.73 code = 33518) CALC BUN/CREAT (test code = 23 RATIO 2235) SODIUM (test code = 2231) 139 MEQ/L POTASSIUM (test code = 2228) 4.7 MEQ/L CHLORIDE (test code = 2215) 102 MEQ/L CARBON DIOXIDE (test code = 24 MEQ/L 2205) CALCIUM (test code = 2209) 9.7 MG/DL PROTEIN, TOTAL (test code = 8.1 G/DL 2228) ALBUMIN (test code = 2201) 4.7 G/DL CALC GLOBULIN (test code = 3.4 G/DL 2239) CALC A/G RATIO (test code = 1.4 RATIO 223) BILIRUBIN, TOTAL (test code = 0.4 MG/DL 2206) ALKALINE PHOSPHATASE (test 106 U/L code = 2204) AST (test code = 2218) 18 U/L ALT (test code = 2219) 15 U/L COMPREHENSIVE METABOLIC [id number] 00:00:00 Test Item Value Reference Range Interpretation Comments GLUCOSE (test code = 2217) 176 MG/DL BUN (test code = 2208) 13 MG/DL CREATININE (test code = 2214) 0.56 MG/DL eGFR AMER. (test code 113 ML/MIN/1.73 = 48001) eGFR NON- AMER. (test 98 ML/MIN/1.73 code = 20970) CALC BUN/CREAT (test code = 23 RATIO 2235) SODIUM (test code = 2231) 139 MEQ/L POTASSIUM (test code = 2228) 4.7 MEQ/L CHLORIDE (test code = 2215) 102 MEQ/L CARBON DIOXIDE (test code = 24 MEQ/L 2205) CALCIUM (test code = 2209) 9.7 MG/DL PROTEIN, TOTAL (test code = 8.1 G/DL 2228) ALBUMIN (test code = 2201) 4.7 G/DL CALC GLOBULIN (test code = 3.4 G/DL 2239) CALC A/G RATIO (test code = 1.4 RATIO 2234) BILIRUBIN, TOTAL (test code = 0.4 MG/DL 2206) ALKALINE PHOSPHATASE (test 106 U/L code = 2204) AST (test code = 2218) 18 U/L ALT (test code = 2219) 15 U/L LIPID [id number] 00:00:00 Test Item Value Reference Range Interpretation Comments CHOLESTEROL (test code = 2210) 227 MG/DL TRIGLYCERIDES (test code = 2232) 137 MG/DL HDL CHOLESTEROL (test code = 2220) 59 MG/DL CALC LDL CHOL (test code = 2237) 142 MG/DL RISK RATIO LDL/HDL (test code = 2.41 RATIO 2238) LIPID [id number] 00:00:00 Test Item Value Reference Range Interpretation Comments CHOLESTEROL (test code = 2210) 227 MG/DL TRIGLYCERIDES (test code = 2232) 137 MG/DL HDL CHOLESTEROL (test code = 2220) 59 MG/DL CALC LDL CHOL (test code = 2237) 142 MG/DL RISK RATIO LDL/HDL (test code = 2.41 RATIO 2238) HEMOGLOBIN [id number] 00:00:00 Test Item Value Reference Range Interpretation Comments HEMOGLOBIN A1c (test code = 12413) 6.3 % HEMOGLOBIN [id number] 00:00:00 Test Item Value Reference Range Interpretation Comments HEMOGLOBIN A1c (test code = 25941) 6.3 % HEMOGLOBIN [id number] 00:00:00 Test Item Value Reference Range Interpretation Comments HEMOGLOBIN A1c (test code = 83536) 6.3 % LIPID [id number] 00:00:00 Test Item Value Reference Range Interpretation Comments CHOLESTEROL (test code = 2210) 213 MG/DL TRIGLYCERIDES (test code = 2232) 90 MG/DL HDL CHOLESTEROL (test code = 2220) 57 MG/DL CALC LDL CHOL (test code = 2237) 138 MG/DL RISK RATIO LDL/HDL (test code = 2.42 RATIO 2238) LIPID [id number] 00:00:00 Test Item Value Reference Range Interpretation Comments CHOLESTEROL (test code = 2210) 213 MG/DL TRIGLYCERIDES (test code = 2232) 90 MG/DL HDL CHOLESTEROL (test code = 2220) 57 MG/DL CALC LDL CHOL (test code = 2237) 138 MG/DL RISK RATIO LDL/HDL (test code = 2.42 RATIO 2238) COMPREHENSIVE METABOLIC [id number] 00:00:00 Test Item Value Reference Range Interpretation Comments GLUCOSE (test code = 2217) 178 MG/DL BUN (test code = 2208) 14 MG/DL CREATININE (test code = 2214) 0.58 MG/DL eGFR AMER. (test code 113 ML/MIN/1.73 = 08621) eGFR NON- AMER. (test 97 ML/MIN/1.73 code = 72022) CALC BUN/CREAT (test code = 24 RATIO 2235) SODIUM (test code = 2231) 141 MEQ/L POTASSIUM (test code = 2228) 5.0 MEQ/L CHLORIDE (test code = 2215) 104 MEQ/L CARBON DIOXIDE (test code = 25 MEQ/L 2205) CALCIUM (test code = 2209) 9.7 MG/DL PROTEIN, TOTAL (test code = 8.2 G/DL 2228) ALBUMIN (test code = 220) 4.8 G/DL CALC GLOBULIN (test code = 3.4 G/DL 2239) CALC A/G RATIO (test code = 1.4 RATIO 2233) BILIRUBIN, TOTAL (test code = 0.4 MG/DL 2207) ALKALINE PHOSPHATASE (test 105 U/L code = 2204) AST (test code = 2218) 19 U/L ALT (test code = 2219) 15 U/L COMPREHENSIVE METABOLIC [id number] 00:00:00 Test Item Value Reference Range Interpretation Comments GLUCOSE (test code = 2217) 178 MG/DL BUN (test code = 2208) 14 MG/DL CREATININE (test code = 2214) 0.58 MG/DL eGFR AMER. (test code 113 ML/MIN/1.73 = 90229) eGFR NON- AMER. (test 97 ML/MIN/1.73 code = 31155) CALC BUN/CREAT (test code = 24 RATIO 2235) SODIUM (test code = 2231) 141 MEQ/L POTASSIUM (test code = 2228) 5.0 MEQ/L CHLORIDE (test code = 2215) 104 MEQ/L CARBON DIOXIDE (test code = 25 MEQ/L 2205) CALCIUM (test code = 2209) 9.7 MG/DL PROTEIN, TOTAL (test code = 8.2 G/DL 2228) ALBUMIN (test code = 2201) 4.8 G/DL CALC GLOBULIN (test code = 3.4 G/DL 2240) CALC A/G RATIO (test code = 1.4 RATIO 4) BILIRUBIN, TOTAL (test code = 0.4 MG/DL 2206) ALKALINE PHOSPHATASE (test 105 U/L code = 2204) AST (test code = 2218) 19 U/L ALT (test code = 2219) 15 U/L HEMOGLOBIN [id number] 00:00:00 Test Item Value Reference Range Interpretation Comments HEMOGLOBIN A1c (test code = 66356) 6.3 % HEMOGLOBIN [id number] 00:00:00 Test Item Value Reference Range Interpretation Comments HEMOGLOBIN A1c (test code = 67580) 6.3 % HEMOGLOBIN [id number] 00:00:00 Test Item Value Reference Range Interpretation Comments HEMOGLOBIN A1c (test code = 76789) 6.3 % LIPID [id number] 00:00:00 Test Item Value Reference Range Interpretation Comments CHOLESTEROL (test code = 2210) 213 MG/DL TRIGLYCERIDES (test code = 2232) 90 MG/DL HDL CHOLESTEROL (test code = 2220) 57 MG/DL CALC LDL CHOL (test code = 2237) 138 MG/DL RISK RATIO LDL/HDL (test code = 2.42 RATIO 2238) LIPID [id number] 00:00:00 Test Item Value Reference Range Interpretation Comments CHOLESTEROL (test code = 2210) 213 MG/DL TRIGLYCERIDES (test code = 2232) 90 MG/DL HDL CHOLESTEROL (test code = 2220) 57 MG/DL CALC LDL CHOL (test code = 2237) 138 MG/DL RISK RATIO LDL/HDL (test code = 2.42 RATIO 2238) COMPREHENSIVE METABOLIC [id number] 00:00:00 Test Item Value Reference Range Interpretation Comments GLUCOSE (test code = 2217) 178 MG/DL BUN (test code = 2208) 14 MG/DL CREATININE (test code = 2214) 0.58 MG/DL eGFR AMER. (test code 113 ML/MIN/1.73 = 73749) eGFR NON- AMER. (test 97 ML/MIN/1.73 code = 67155) CALC BUN/CREAT (test code = 24 RATIO 2235) SODIUM (test code = 2231) 141 MEQ/L POTASSIUM (test code = 2228) 5.0 MEQ/L CHLORIDE (test code = 2215) 104 MEQ/L CARBON DIOXIDE (test code = 25 MEQ/L 2205) CALCIUM (test code = 2209) 9.7 MG/DL PROTEIN, TOTAL (test code = 8.2 G/DL 2228) ALBUMIN (test code = 2201) 4.8 G/DL CALC GLOBULIN (test code = 3.4 G/DL 2240) CALC A/G RATIO (test code = 1.4 RATIO 2234) BILIRUBIN, TOTAL (test code = 0.4 MG/DL 2206) ALKALINE PHOSPHATASE (test 105 U/L code = 2204) AST (test code = 2218) 19 U/L ALT (test code = 2219) 15 U/L COMPREHENSIVE METABOLIC [id number] 00:00:00 Test Item Value Reference Range Interpretation Comments GLUCOSE (test code = 2217) 178 MG/DL BUN (test code = 2208) 14 MG/DL CREATININE (test code = 2214) 0.58 MG/DL eGFR AMER. (test code 113 ML/MIN/1.73 = 56497) eGFR NON- AMER. (test 97 ML/MIN/1.73 code = 79643) CALC BUN/CREAT (test code = 24 RATIO 2235) SODIUM (test code = 2231) 141 MEQ/L POTASSIUM (test code = 2228) 5.0 MEQ/L CHLORIDE (test code = 2215) 104 MEQ/L CARBON DIOXIDE (test code = 25 MEQ/L 2205) CALCIUM (test code = 2209) 9.7 MG/DL PROTEIN, TOTAL (test code = 8.2 G/DL 2228) ALBUMIN (test code = 220) 4.8 G/DL CALC GLOBULIN (test code = 3.4 G/DL 2239) CALC A/G RATIO (test code = 1.4 RATIO 2233) BILIRUBIN, TOTAL (test code = 0.4 MG/DL 2206) ALKALINE PHOSPHATASE (test 105 U/L code = 2204) AST (test code = 221) 19 U/L ALT (test code = 2219) 15 U/L HEMOGLOBIN [id number] 00:00:00 Test Item Value Reference Range Interpretation Comments HEMOGLOBIN A1c (test code = 81104) 6.9 % HEMOGLOBIN [id number] 00:00:00 Test Item Value Reference Range Interpretation Comments HEMOGLOBIN A1c (test code = 81588) 6.9 % HEMOGLOBIN [id number] 00:00:00 Test Item Value Reference Range Interpretation Comments HEMOGLOBIN A1c (test code = 05155) 6.9 % LIPID [id number] 00:00:00 Test Item Value Reference Range Interpretation Comments CHOLESTEROL (test code = 2210) 192 MG/DL TRIGLYCERIDES (test code = 2232) 113 MG/DL HDL CHOLESTEROL (test code = 2220) 55 MG/DL CALC LDL CHOL (test code = 2237) 114 MG/DL RISK RATIO LDL/HDL (test code = 2.08 RATIO 2238) LIPID [id number] 00:00:00 Test Item Value Reference Range Interpretation Comments CHOLESTEROL (test code = 2210) 192 MG/DL TRIGLYCERIDES (test code = 2232) 113 MG/DL HDL CHOLESTEROL (test code = 2220) 55 MG/DL CALC LDL CHOL (test code = 2237) 114 MG/DL RISK RATIO LDL/HDL (test code = 2.08 RATIO 2238) COMPREHENSIVE METABOLIC [id number] 00:00:00 Test Item Value Reference Range Interpretation Comments GLUCOSE (test code = 2217) 179 MG/DL BUN (test code = 2208) 14 MG/DL CREATININE (test code = 2214) 0.41 MG/DL eGFR AMER. (test code 127 ML/MIN/1.73 = 49913) eGFR NON- AMER. (test 109 ML/MIN/1.73 code = 63926) CALC BUN/CREAT (test code = 34 RATIO 2235) SODIUM (test code = 2231) 139 MEQ/L POTASSIUM (test code = 2228) 4.4 MEQ/L CHLORIDE (test code = 2215) 103 MEQ/L CARBON DIOXIDE (test code = 24 MEQ/L 2205) CALCIUM (test code = 2209) 9.8 MG/DL PROTEIN, TOTAL (test code = 7.9 G/DL 2228) ALBUMIN (test code = 2201) 4.5 G/DL CALC GLOBULIN (test code = 3.4 G/DL 2240) CALC A/G RATIO (test code = 1.3 RATIO 2234) BILIRUBIN, TOTAL (test code = 0.5 MG/DL 2206) ALKALINE PHOSPHATASE (test 101 U/L code = 2204) AST (test code = 2218) 20 U/L ALT (test code = 2219) 14 U/L COMPREHENSIVE METABOLIC [id number] 00:00:00 Test Item Value Reference Range Interpretation Comments GLUCOSE (test code = 2217) 179 MG/DL BUN (test code = 2208) 14 MG/DL CREATININE (test code = 2214) 0.41 MG/DL eGFR AMER. (test code 127 ML/MIN/1.73 = 62847) eGFR NON- AMER. (test 109 ML/MIN/1.73 code = 42818) CALC BUN/CREAT (test code = 34 RATIO 2235) SODIUM (test code = 2231) 139 MEQ/L POTASSIUM (test code = 2228) 4.4 MEQ/L CHLORIDE (test code = 2215) 103 MEQ/L CARBON DIOXIDE (test code = 24 MEQ/L 2205) CALCIUM (test code = 2209) 9.8 MG/DL PROTEIN, TOTAL (test code = 7.9 G/DL 2228) ALBUMIN (test code = 2201) 4.5 G/DL CALC GLOBULIN (test code = 3.4 G/DL 2240) CALC A/G RATIO (test code = 1.3 RATIO 2234) BILIRUBIN, TOTAL (test code = 0.5 MG/DL 2206) ALKALINE PHOSPHATASE (test 101 U/L code = 2204) AST (test code = 2218) 20 U/L ALT (test code = 2219) 14 U/L HEMOGLOBIN [id number] 00:00:00 Test Item Value Reference Range Interpretation Comments HEMOGLOBIN A1c (test code = 13737) 6.9 % HEMOGLOBIN [id number] 00:00:00 Test Item Value Reference Range Interpretation Comments HEMOGLOBIN A1c (test code = 10077) 6.9 % HEMOGLOBIN [id number] 00:00:00 Test Item Value Reference Range Interpretation Comments HEMOGLOBIN A1c (test code = 24615) 6.9 % LIPID [id number] 00:00:00 Test Item Value Reference Range Interpretation Comments CHOLESTEROL (test code = 2210) 192 MG/DL TRIGLYCERIDES (test code = 2232) 113 MG/DL HDL CHOLESTEROL (test code = 2220) 55 MG/DL CALC LDL CHOL (test code = 2237) 114 MG/DL RISK RATIO LDL/HDL (test code = 2.08 RATIO 2238) LIPID [id number] 00:00:00 Test Item Value Reference Range Interpretation Comments CHOLESTEROL (test code = 2210) 192 MG/DL TRIGLYCERIDES (test code = 2232) 113 MG/DL HDL CHOLESTEROL (test code = 2220) 55 MG/DL CALC LDL CHOL (test code = 2237) 114 MG/DL RISK RATIO LDL/HDL (test code = 2.08 RATIO 2238) COMPREHENSIVE METABOLIC [id number] 00:00:00 Test Item Value Reference Range Interpretation Comments GLUCOSE (test code = 2217) 179 MG/DL BUN (test code = 2208) 14 MG/DL CREATININE (test code = 2214) 0.41 MG/DL eGFR AMER. (test code 127 ML/MIN/1.73 = 87384) eGFR NON- AMER. (test 109 ML/MIN/1.73 code = 72002) CALC BUN/CREAT (test code = 34 RATIO 2235) SODIUM (test code = 2231) 139 MEQ/L POTASSIUM (test code = 2228) 4.4 MEQ/L CHLORIDE (test code = 2215) 103 MEQ/L CARBON DIOXIDE (test code = 24 MEQ/L 2205) CALCIUM (test code = 2209) 9.8 MG/DL PROTEIN, TOTAL (test code = 7.9 G/DL 222) ALBUMIN (test code = 2201) 4.5 G/DL CALC GLOBULIN (test code = 3.4 G/DL 2240) CALC A/G RATIO (test code = 1.3 RATIO 2234) BILIRUBIN, TOTAL (test code = 0.5 MG/DL 220) ALKALINE PHOSPHATASE (test 101 U/L code = 2204) AST (test code = 2218) 20 U/L ALT (test code = 2219) 14 U/L COMPREHENSIVE METABOLIC [id number] 00:00:00 Test Item Value Reference Range Interpretation Comments GLUCOSE (test code = 2217) 179 MG/DL BUN (test code = 2208) 14 MG/DL CREATININE (test code = 2214) 0.41 MG/DL eGFR AMER. (test code 127 ML/MIN/1.73 = 13772) eGFR NON- AMER. (test 109 ML/MIN/1.73 code = 49965) CALC BUN/CREAT (test code = 34 RATIO 2235) SODIUM (test code = 2231) 139 MEQ/L POTASSIUM (test code = 2228) 4.4 MEQ/L CHLORIDE (test code = 2215) 103 MEQ/L CARBON DIOXIDE (test code = 24 MEQ/L 2205) CALCIUM (test code = 2209) 9.8 MG/DL PROTEIN, TOTAL (test code = 7.9 G/DL 2228) ALBUMIN (test code = 2201) 4.5 G/DL CALC GLOBULIN (test code = 3.4 G/DL 2240) CALC A/G RATIO (test code = 1.3 RATIO 2234) BILIRUBIN, TOTAL (test code = 0.5 MG/DL 2207) ALKALINE PHOSPHATASE (test 101 U/L code = 2204) AST (test code = 2218) 20 U/L ALT (test code = 2219) 14 U/L HEMOGLOBIN [id number] 00:00:00 Test Item Value Reference Range Interpretation Comments HEMOGLOBIN A1c (test code = 88914) 12.0 % HEMOGLOBIN [id number] 00:00:00 Test Item Value Reference Range Interpretation Comments HEMOGLOBIN A1c (test code = 02813) 12.0 % HEMOGLOBIN [id number] 00:00:00 Test Item Value Reference Range Interpretation Comments HEMOGLOBIN A1c (test code = 29984) 12.0 % COMPREHENSIVE METABOLIC [id number] 00:00:00 Test Item Value Reference Range Interpretation Comments GLUCOSE (test code = 2217) 214 MG/DL BUN (test code = 2208) 21 MG/DL CREATININE (test code = 2214) 0.52 MG/DL eGFR AMER. (test code 117 ML/MIN/1.73 = 34553) eGFR NON- AMER. (test 101 ML/MIN/1.73 code = 06974) CALC BUN/CREAT (test code = 40 RATIO 2235) SODIUM (test code = 2231) 136 MEQ/L POTASSIUM (test code = 2228) 4.2 MEQ/L CHLORIDE (test code = 2215) 99 MEQ/L CARBON DIOXIDE (test code = 24 MEQ/L 2205) CALCIUM (test code = 2209) 9.8 MG/DL PROTEIN, TOTAL (test code = 7.9 G/DL 2228) ALBUMIN (test code = 2201) 4.5 G/DL CALC GLOBULIN (test code = 3.4 G/DL 224) CALC A/G RATIO (test code = 1.3 RATIO 2234) BILIRUBIN, TOTAL (test code = 0.3 MG/DL 2206) ALKALINE PHOSPHATASE (test 111 U/L code = 2204) AST (test code = 2218) 13 U/L ALT (test code = 2219) 10 U/L COMPREHENSIVE METABOLIC [id number] 00:00:00 Test Item Value Reference Range Interpretation Comments GLUCOSE (test code = 2217) 214 MG/DL BUN (test code = 2208) 21 MG/DL CREATININE (test code = 2214) 0.52 MG/DL eGFR AMER. (test code 117 ML/MIN/1.73 = 16404) eGFR NON- AMER. (test 101 ML/MIN/1.73 code = 85212) CALC BUN/CREAT (test code = 40 RATIO 2235) SODIUM (test code = 2231) 136 MEQ/L POTASSIUM (test code = 2228) 4.2 MEQ/L CHLORIDE (test code = 2215) 99 MEQ/L CARBON DIOXIDE (test code = 24 MEQ/L 220) CALCIUM (test code = 2209) 9.8 MG/DL PROTEIN, TOTAL (test code = 7.9 G/DL 222) ALBUMIN (test code = 2201) 4.5 G/DL CALC GLOBULIN (test code = 3.4 G/DL 0) CALC A/G RATIO (test code = 1.3 RATIO 2234) BILIRUBIN, TOTAL (test code = 0.3 MG/DL 2206) ALKALINE PHOSPHATASE (test 111 U/L code = 2204) AST (test code = 2218) 13 U/L ALT (test code = 2219) 10 U/L LIPID [id number] 00:00:00 Test Item Value Reference Range Interpretation Comments CHOLESTEROL (test code = 2210) 206 MG/DL TRIGLYCERIDES (test code = 2232) 193 MG/DL HDL CHOLESTEROL (test code = 2220) 55 MG/DL CALC LDL CHOL (test code = 2237) 112 MG/DL RISK RATIO LDL/HDL (test code = 2.04 RATIO 2238) LIPID [id number] 00:00:00 Test Item Value Reference Range Interpretation Comments CHOLESTEROL (test code = 2210) 206 MG/DL TRIGLYCERIDES (test code = 2232) 193 MG/DL HDL CHOLESTEROL (test code = 2220) 55 MG/DL CALC LDL CHOL (test code = 2237) 112 MG/DL RISK RATIO LDL/HDL (test code = 2.04 RATIO 2238) [id number] 00:00:00 Test Item Value Reference Range Interpretation Comments TSH, THIRD GENERATION (test code 2.490 UIU/ML = 2821) [id number] 00:00:00 Test Item Value Reference Range Interpretation Comments TSH, THIRD GENERATION (test code 2.490 UIU/ML = 2821) [id number] 00:00:00 Test Item Value Reference Range Interpretation Comments TSH, THIRD GENERATION (test code 2.490 UIU/ML = 2821) MICROALBUMIN/CREATININE, RANDOM AND [id number] 00:00:00 Test Item Value Reference Range Interpretation Comments CREATININE, URINE, CONC. (test 83.0 MG/DL code = 2072) ALBUMIN, URINE, RANDOM (test code 11.0 MG/DL = 25745) CALC ALBUMIN/CREAT, RND (test code 133 MG/G = 65809) MICROALBUMIN/CREATININE, RANDOM AND [id number] 00:00:00 Test Item Value Reference Range Interpretation Comments CREATININE, URINE, CONC. (test 83.0 MG/DL code = 2072) ALBUMIN, URINE, RANDOM (test code 11.0 MG/DL = 06225) CALC ALBUMIN/CREAT, RND (test code 133 MG/G = 06694) RHEUMATOID FACTOR, [id number] 00:00:00 Test Item Value Reference Range Interpretation Comments RHEUMATOID FACTOR, QUANT (test code 87 IU/ML = 3502) RHEUMATOID FACTOR, [id number] 00:00:00 Test Item Value Reference Range Interpretation Comments RHEUMATOID FACTOR, QUANT (test code 87 IU/ML = 3502) RHEUMATOID FACTOR, [id number] 00:00:00 Test Item Value Reference Range Interpretation Comments RHEUMATOID FACTOR, QUANT (test code 87 IU/ML = 3502) HEMOGLOBIN [id number] 00:00:00 Test Item Value Reference Range Interpretation Comments HEMOGLOBIN A1c (test code = 04776) 12.0 % HEMOGLOBIN [id number] 00:00:00 Test Item Value Reference Range Interpretation Comments HEMOGLOBIN A1c (test code = 59705) 12.0 % HEMOGLOBIN [id number] 00:00:00 Test Item Value Reference Range Interpretation Comments HEMOGLOBIN A1c (test code = 67731) 12.0 % COMPREHENSIVE METABOLIC [id number] 00:00:00 Test Item Value Reference Range Interpretation Comments GLUCOSE (test code = 2217) 214 MG/DL BUN (test code = 2208) 21 MG/DL CREATININE (test code = 2214) 0.52 MG/DL eGFR AMER. (test code 117 ML/MIN/1.73 = 72404) eGFR NON- AMER. (test 101 ML/MIN/1.73 code = 03415) CALC BUN/CREAT (test code = 40 RATIO 2235) SODIUM (test code = 2231) 136 MEQ/L POTASSIUM (test code = 2228) 4.2 MEQ/L CHLORIDE (test code = 2215) 99 MEQ/L CARBON DIOXIDE (test code = 24 MEQ/L 2205) CALCIUM (test code = 2209) 9.8 MG/DL PROTEIN, TOTAL (test code = 7.9 G/DL 2228) ALBUMIN (test code = 2201) 4.5 G/DL CALC GLOBULIN (test code = 3.4 G/DL 2239) CALC A/G RATIO (test code = 1.3 RATIO 2234) BILIRUBIN, TOTAL (test code = 0.3 MG/DL 2206) ALKALINE PHOSPHATASE (test 111 U/L code = 2204) AST (test code = 2218) 13 U/L ALT (test code = 2219) 10 U/L COMPREHENSIVE METABOLIC [id number] 00:00:00 Test Item Value Reference Range Interpretation Comments GLUCOSE (test code = 2217) 214 MG/DL BUN (test code = 2208) 21 MG/DL CREATININE (test code = 2214) 0.52 MG/DL eGFR AMER. (test code 117 ML/MIN/1.73 = 84871) eGFR NON- AMER. (test 101 ML/MIN/1.73 code = 81114) CALC BUN/CREAT (test code = 40 RATIO 2235) SODIUM (test code = 2231) 136 MEQ/L POTASSIUM (test code = 2228) 4.2 MEQ/L CHLORIDE (test code = 2215) 99 MEQ/L CARBON DIOXIDE (test code = 24 MEQ/L 2205) CALCIUM (test code = 2209) 9.8 MG/DL PROTEIN, TOTAL (test code = 7.9 G/DL 2228) ALBUMIN (test code = 2201) 4.5 G/DL CALC GLOBULIN (test code = 3.4 G/DL 2240) CALC A/G RATIO (test code = 1.3 RATIO 2234) BILIRUBIN, TOTAL (test code = 0.3 MG/DL 2206) ALKALINE PHOSPHATASE (test 111 U/L code = 2204) AST (test code = 2218) 13 U/L ALT (test code = 2219) 10 U/L LIPID [id number] 00:00:00 Test Item Value Reference Range Interpretation Comments CHOLESTEROL (test code = 2210) 206 MG/DL TRIGLYCERIDES (test code = 2232) 193 MG/DL HDL CHOLESTEROL (test code = 2220) 55 MG/DL CALC LDL CHOL (test code = 2237) 112 MG/DL RISK RATIO LDL/HDL (test code = 2.04 RATIO 2238) LIPID [id number] 00:00:00 Test Item Value Reference Range Interpretation Comments CHOLESTEROL (test code = 2210) 206 MG/DL TRIGLYCERIDES (test code = 2232) 193 MG/DL HDL CHOLESTEROL (test code = 2220) 55 MG/DL CALC LDL CHOL (test code = 2237) 112 MG/DL RISK RATIO LDL/HDL (test code = 2.04 RATIO 2238) [id number] 00:00:00 Test Item Value Reference Range Interpretation Comments TSH, THIRD GENERATION (test code 2.490 UIU/ML = 2821) [id number] 00:00:00 Test Item Value Reference Range Interpretation Comments TSH, THIRD GENERATION (test code 2.490 UIU/ML = 2821) [id number] 00:00:00 Test Item Value Reference Range Interpretation Comments TSH, THIRD GENERATION (test code 2.490 UIU/ML = 2821) MICROALBUMIN/CREATININE, RANDOM AND [id number] 00:00:00 Test Item Value Reference Range Interpretation Comments CREATININE, URINE, CONC. (test 83.0 MG/DL code = 2072) ALBUMIN, URINE, RANDOM (test code 11.0 MG/DL = 09432) CALC ALBUMIN/CREAT, RND (test code 133 MG/G = 03516) MICROALBUMIN/CREATININE, RANDOM AND [id number] 00:00:00 Test Item Value Reference Range Interpretation Comments CREATININE, URINE, CONC. (test 83.0 MG/DL code = 2072) ALBUMIN, URINE, RANDOM (test code 11.0 MG/DL = 54386) CALC ALBUMIN/CREAT, RND (test code 133 MG/G = 94726) RHEUMATOID FACTOR, [id number] 00:00:00 Test Item Value Reference Range Interpretation Comments RHEUMATOID FACTOR, QUANT (test code 87 IU/ML = 3502) RHEUMATOID FACTOR, [id number] 00:00:00 Test Item Value Reference Range Interpretation Comments RHEUMATOID FACTOR, QUANT (test code 87 IU/ML = 3502) RHEUMATOID FACTOR, [id number] 00:00:00 Test Item Value Reference Range Interpretation Comments RHEUMATOID FACTOR, QUANT (test code 87 IU/ML = 3502)
[2022-06-03] MEDS ORDERED: MAGNES/ALUMIN/SIMET 30ML UCUP ONE (12:58)
[2022-06-03] MEDS ORDERED: LIDOCAINE VISCOUS 2% SOLN 15 ML UDC ONE (12:58)
--- NOTE | 2022-06-03 14:07 | EDPHYS ---
Physician Documentation [facility] Name: Reno Vee Age: 66 yrs Sex: Female : 1955 Arrival Date: 06/03/2022 Time: 12:48 Bed 11 Private MD: ED Physician Jose Douglas HPI: 06/03 13:12 This 66 yrs old Female presents to ER via Ambulatory with complaints of Sore kb Throat. 13:12 The patient presents with sore throat. The patient describes throat pain as constant. kb Onset: The symptoms/episode began/occurred yesterday. Severity of symptoms: At their worst the symptoms were moderate, in the emergency department the symptoms are unchanged. Modifying factors: The symptoms are alleviated by nothing, the symptoms are aggravated by swallowing. Associated signs and symptoms: Pertinent positives: Sore throat Pertinent negatives fever, flu-like symptoms. The patient has not experienced similar symptoms in the past. The patient has not recently seen a physician. Historical: - Allergies: 12:55 No Known Allergies; ll1 - PMHx: 12:55 diabetes mellitus; Hypertensive disorder; Hypercholesterolemia; ll1 - PSHx: 12:55 None; ll1 - Immunization history:: Client reports receiving the 2nd dose of the Covid vaccine. - Social history:: Smoking status: Patient denies any tobacco usage or history of. ROS: 13:11 Constitutional: Negative for fever, chills, and weight loss. kb 13:11 ENT: Positive for sore throat. 13:11 All other systems are negative. Exam: 13:11 Constitutional: This is a well developed, well nourished patient who is awake, alert, kb and in no acute distress. Head/Face: Normocephalic, atraumatic. Cardiovascular: Regular rate and rhythm with a normal S1 and S2. No gallops, murmurs, or rubs. No pulse deficits. Respiratory: Respirations even and unlabored. No increased work of breathing. Talking in full sentences Skin: Warm, dry with normal turgor. Normal color. MS/ Extremity: Pulses equal, no cyanosis. Neurovascular intact. Full, normal range of motion. Neuro: Awake and alert, GCS 15, oriented to person, place, time, and situation. Moves all extremities. Normal gait. Psych: Awake, alert, with orientation to person, place and time. Behavior, mood, and affect are within normal limits. 13:11 ENT: External ear(s): are unremarkable, Ear canal(s): are normal, TM's: no acute changes, Posterior pharynx: swelling, that is mild, erythema, that is moderate. Vital Signs: 12:54 BP 181 / 82; Pulse 100; Resp 17; Temp 97.0; Pulse Ox 96% on R/A; Weight 70.76 kg; ll1 Height 5 ft. 2 in. (157.48 cm); Pain 10/10; 12:54 Body Mass Index 28.53 (70.76 kg, 157.48 cm) ll1 MDM: 12:49 Patient medically screened. kb 13:11 Data reviewed: vital signs, nurses notes. Data interpreted: Pulse oximetry: on room air kb is 96 %. Interpretation: normal. Counseling: I had a detailed discussion with the patient and/or guardian regarding: the historical points, exam findings, and any diagnostic results supporting the discharge/admit diagnosis, lab results, the need for outpatient follow up, a family practitioner, to return to the emergency department if symptoms worsen or persist or if there are any questions or concerns that arise at home. 06/03 12:53 Order name: Strep; Complete Time: 14:07 kb 06/03 14:11 Order name: Throat Culture EDMS Administered Medications: 13:04 Drug: GI Cocktail without - (Maalox Suspension 30 ml, Lidocaine Liquid 2 % 15 tp1 ml) Route: PO; 14:06 Follow up: Response: Pain is decreased tp1 14:14 Drug: Decadron (dexamethasone) 10 mg Route: IM; Site: right gluteus; tp1 14:14 Follow up: Response: Medication administered at discharge. tp1 Disposition: 15:12 Co-signature as Attending Physician, Jose GARZA was immediately available on-site ms3 in the Emergency Department for consultation in the care of the patient. Disposition Summary: 06/03/22 14:06 Discharge Ordered Location: Home kb Condition: Stable kb Diagnosis - Acute pharyngitis, unspecified kb Followup: kb - With: Emergency Department - When: As needed - Reason: Worsening of condition Followup: kb - With: Private Physician - When: 2 - 3 days - Reason: Recheck today's complaints, Continuance of care, Re-evaluation by your physician Discharge Instructions: - Discharge Summary Sheet kb - Strep Throat, Adult, [id number] kb - Pharyngitis, [id number] kb Forms: - Medication Reconciliation Form kb - Thank You Letter kb - Antibiotic Education kb - Prescription Opioid Use kb Signatures: Dispatcher [employer] EDMS Vania Vargas, DOVETAILER-C DOVETAILER-Xavi Stafford RN RN ll1 Jose Douglas DO DO ms3 Shanna Mcdowell RN RN tp1
--- NOTE | 2022-06-03 14:07 | ER ---
Nurse's Notes [facility] Name: Reno Vee Age: 66 yrs Sex: Female : 1955 Arrival Date: 06/03/2022 Time: 12:48 Bed 11 Private MD: Diagnosis: Acute pharyngitis, unspecified Presentation: 06/03 12:54 Chief complaint: Patient states: Sore throat for 2 days. No fever. Not eating well or ll1 taking her medications due to pain. Coronavirus screen: Vaccine status: Patient reports receiving the 2nd dose of the covid vaccine. Client denies travel out of the [place] in the last 14 days. sore throat, Client presents with at least one sign or symptom that may indicate coronavirus-19. Standard/surgical mask placed on the client. Ebola Screen: Patient denies travel to an Ebola-affected area in the 21 days before illness onset. Initial Sepsis Screen: Does the patient meet any 2 criteria? HR > 90 bpm. No. Patient's initial sepsis screen is negative. Does the patient have a suspected source of infection? Yes: Other: sore throat. Risk Assessment: Do you want to hurt yourself or someone else? Patient reports no desire to harm self or others. Onset of symptoms was June 02, 2022. 12:54 Method Of Arrival: Ambulatory ll1 12:54 Acuity: TURNER 4 ll1 Triage Assessment: 12:56 General: Appears uncomfortable, Behavior is cooperative, appropriate for age. Pain: ll1 Complains of pain in throat Pain currently is 10 out of 10 on a pain scale. Quality of pain is described as aching. EENT: Reports pain when swallowing. Historical: - Allergies: 12:55 No Known Allergies; ll1 - PMHx: 12:55 diabetes mellitus; Hypertensive disorder; Hypercholesterolemia; ll1 - PSHx: 12:55 None; ll1 - Immunization history:: Client reports receiving the 2nd dose of the Covid vaccine. - Social history:: Smoking status: Patient denies any tobacco usage or history of. Screenin:09 Abuse screen: Denies threats or abuse. Denies injuries from another. Nutritional tp1 screening: No deficits noted. Tuberculosis screening: No symptoms or risk factors identified. Fall Risk None identified. Assessment: 13:00 General: Appears in no apparent distress. uncomfortable, Behavior is calm, cooperative. tp1 Pain: Complains of pain in throat Pain does not radiate. Pain currently is 8 out of 10 on a pain scale. Quality of pain is described as sharp. Neuro: Level of Consciousness is awake, alert, obeys commands, Oriented to person, place, time, situation. Cardiovascular: Patient's skin is warm and dry. Respiratory: Airway is patent Respiratory effort is even, unlabored. GI: No signs and/or symptoms were reported involving the gastrointestinal system. Patient currently denies diarrhea, nausea, vomiting. : No signs and/or symptoms were reported regarding the genitourinary system. EENT: Throat is reddened has enlarged tonsils Reports difficulty swallowing . Denies nasal congestion. Derm: Skin is pink, warm \T\ dry. Musculoskeletal: Circulation, motion, and sensation intact. 14:06 Reassessment: Patient appears in no apparent distress at this time. No changes from tp1 previously documented assessment. Patient and/or family updated on plan of care and expected duration. Pain level reassessed. Patient is alert, oriented x 3, equal unlabored respirations, skin warm/dry/pink. states pain has decreased, rates pain 3/10. Vital Signs: 12:54 BP 181 / 82; Pulse 100; Resp 17; Temp 97.0; Pulse Ox 96% on R/A; Weight 70.76 kg; ll1 Height 5 ft. 2 in. (157.48 cm); Pain 10/10; 12:54 Body Mass Index 28.53 (70.76 kg, 157.48 cm) ll1 ED Course: 12:48 Patient arrived in ED. rg4 12:49 Van[facility]C [facility]. kb 12:49 Jose Douglas DO is Attending Physician. kb 12:52 Shanna Mcdowell, VIANEY is Primary Nurse. tp1 12:55 Triage completed. ll1 12:56 Arm band placed on Patient placed in an exam room, on a stretcher. ll1 13:00 Patient has correct armband on for positive identification. Placed in gown. Bed in low tp1 position. Adult w/ patient. 13:04 Strep Sent. tp1 13:09 No provider procedures requiring assistance completed. Patient did not have IV access tp1 during this emergency room visit. Administered Medications: 13:04 Drug: GI Cocktail without - (Maalox Suspension 30 ml, Lidocaine Liquid 2 % 15 tp1 ml) Route: PO; 14:06 Follow up: Response: Pain is decreased tp1 14:14 Drug: Decadron (dexamethasone) 10 mg Route: IM; Site: right gluteus; tp1 14:14 Follow up: Response: Medication administered at discharge. tp1 Medication: 13:10 VIS not applicable for this client. tp1 Outcome: 14:06 Discharge ordered by MD. krishnan 14:14 Discharged to home ambulatory. tp1 14:14 Condition: good 14:14 Discharge instructions given to patient, family, Instructed on discharge instructions, follow up and referral plans. Demonstrated understanding of instructions, follow-up care. 14:15 Patient left the ED. tp1 Signatures: Vania Vargas, AUDITOR INTERNAL-C AUDITOR INTERNAL-Clair Orellana rg4 Xavi Lema RN RN ll1 Shanna Mcdowell RN RN tp1
[2022-06-03] MEDS ORDERED: dexAMETHasone 10 MG/ML VIAL ONE (14:11)
[2022-06-03 14:18] VITALS: BP 181/82; TEMP 97; O2SAT 96
== END 2022-06-03 14:15 | disposition home or self-care (01) ==
LOC: ER 12:45
DX: J02.9 Acute pharyngitis, unspecified (principal)
CPT/HCPCS: 87070; 87081; 96372; 99283; J1100